=== PATIENT | male | born 1955 | race Caucasian/White ===

== ENCOUNTER 2018-10-18 11:05 | Inpatient (IN) ==
--- NOTE | 2018-10-18 11:19 | Emergency Department Note ---
Disposition Clinical Impression: Collapse of right lung, Hypoxia Disposition: Admitted As Inpatient Referrals: Jose Alejandro Santos Jr, MD [Primary Care Provider] - Forms: ED Satisfaction Letter Time of Disposition: 14:27 General Adult HPI - General Chief complaint: ED Extremity Injury, Lower Stated complaint: left foot pain Time Seen by Provider: 10/18/18 11:13 Source: patient Mode of arrival: EMS Limitations: no limitations Nursing Notes Reviewed: Yes Vital Signs Reviewed: Yes - History of Present Illness HPI Narrative: 63-year-old male with history of anxiety depression, arrives to the emergency department with complaint of bilateral foot numbness. Patient states it feels like he is having some driven into the bottom of his foot. He denies any injury to it. Patient states this started this morning when he woke up and he noticed it. Patient denies any other neurologic deficit or any other complaint at this time. He states it is not exacerbated with walking or sitting still. He has no associated symptoms other than the mild numbness and tingling. Patient is still able to ambulate without difficulty. He denies any weakness of the foot, lower extremity, back injury, saddle anesthesias, urinary retention or bowel incontinence, head injury, fevers, head injury, anticoagulation, chest pain, difficulty breathing, abdominal pain. He also states that a few days ago he had a chest x-ray that was performed by his PCP and they noted "right lower lung collapse". This is confirmed by chest x-ray on chart eval. Patient is due for a CT scan of the chest within the next few days. He is noted to be 90% on room air. No other acute complaints noted at this time. - Related Data Home Medications Medication Instructions Recorded Confirmed Amitriptyline HCl 100 mg PO HS 10/18/18 10/18/18 Aripiprazole [Abilify] 30 mg PO DAILY 10/18/18 10/18/18 LORazepam [Ativan] 1 mg PO QID 10/18/18 10/18/18 PARoxetine HCl [Paroxetine HCl] 60 mg PO HS 10/18/18 10/18/18 Allergies Allergy/AdvReac Type Severity Reaction Status Date / Time No Known Allergies Allergy Verified 10/18/18 13:12 All systems ED: reviewed and negative except as stated. Constitutional: Denies: fever, chills, weakness ENT ED: Denies: dysphagia Cardiovascular: Denies: chest pain Respiratory: Denies: dyspnea Gastrointestinal: Denies: abdominal pain Genitourinary: Denies: urgency, dysuria Musculoskeletal: Reports: myalgia. Denies: back pain, neck pain Integumentary: Denies: rash Neurological: Reports: numbness, paresthesias. Denies: headache, weakness, confusion, abnormal gait Past Medical History - Past Medical History Attestation: Yes The following information was validated with the patient. Source: patient, old records reviewed Medical history: Reports: no medical history, other Surgical history: Reports: cholecystectomy Psychiatric history: Reports: anxiety, depression - Social History Smoking Status: Former smoker Smokeless Tobacco Status: No Alcohol use: Reports: none Drug use: Reports: none Physical Exam - General Limitations: no limitations General appearance: alert, in no apparent distress - Head Head exam: atraumatic, normocephalic, normal inspection - Eye Eye exam: Present: normal appearance, PERRL, EOMI - ENT ENT exam: normal exam, normal oropharynx, mucous membranes moist - Neck Neck exam: Present: normal inspection, full ROM, trachea midline - Chest Chest inspection: Present: normal inspection, symmetric chest wall rise - Respiratory Respiratory exam: Present: normal lung sounds bilaterally - Cardiovascular Cardiovascular exam: Present: regular rate, normal rhythm, normal heart sounds - Abdominal Exam Abdominal exam: Present: soft, Non-Tender. Absent: tenderness, distention, guarding, rebound, rigidity - Extremities Exam Extremities exam: Present: normal inspection, full ROM, normal capillary refill, other (DP and PT pulses 2+ bilateral lower extremities, capillary refill less than 2 seconds, sensation intact bilateral lower extremities along the foot but patient does describe some pins and needles sensation along lateral, medial and central aspect of the dorsal aspect of his toes. He denies any aspect of the plantar aspect. The patient has full range of motion and Muscle strength.). Absent: tenderness - Neurological Exam Neurological exam: Present: alert, oriented X3 - Skin Skin exam: Present: warm, dry, intact, normal color Course Vital Signs Temperature 98.1 F 10/18/18 11:11 Pulse Rate 100 10/18/18 11:11 Respiratory Rate 20 10/18/18 11:11 Blood Pressure 136/83 10/18/18 11:11 O2 Sat by Pulse Oximetry 92 10/18/18 11:11 Temperature 98.1 F 10/18/18 11:11 Pulse Rate 75 10/18/18 14:20 Respiratory Rate 20 10/18/18 14:20 Blood Pressure 122/73 10/18/18 14:20 O2 Sat by Pulse Oximetry 92 10/18/18 14:20 Oxygen Delivery Oxygen Delivery Nasal Cannula Medical Decision Making - MDM Narrative Medical decision making narrative: Patient's workup in the emergency department demonstrates collapse of the right middle lobe. This is likely secondary to secretions. The patient is noted to be hypoxic down into the 80s on room air. Given the collapse of the long combined with his hypoxia, we will admit the patient to the hospital for further workup and care. Patient's etiology of his foot pain is likely associated with a neuropathy type pattern. It does not fit any peripheral neuropathy so we performed a CT scan of the patient's brain. This to Mr. no acute process. Patient has no back pain and no other neurologic deficits noted. I am not concerned about CVA. This is producing more of a peripheral neuropathy associated with the pain. This does not appear to be a pinched nerve or radiculopathy. The patient will be admitted to the hospital at this time given the hypoxia combined with his "lung collapse". No further questions or concerns noted. Patient agreed with plan. I also spoke with on-call erp analyst who will perform a bronchoscopy the patient first thing in the morning. No further questions or concerns noted. Acceoted by Dr. Lorenz. - Lab Data Lab results reviewed: Yes I reviewed the patient's lab results. Result diagrams: 10/18/18 11:59 10/18/18 11:59 Lab Results 10/18/18 10/18/18 Range/Units 11:59 11:59 WBC 5.9 (4.3-11.1) K/mcL RBC 4.94 (4.19-5.50) M/mcL Hgb 15.9 (12.9-16.9) g/dL Hct 47.5 (37.5-50.1) % MCV 96.2 (83.0-100.0) fL MCH 32.2 (28.0-33.3) pg MCHC 33.5 (31.6-35.5) g/dL RDW 13.7 (11.5-14.5) % Plt Count 167 (140-400) K/mcL MPV 10.3 (9.4-12.4) fL Immature Gran % 0.5 (0-4) % Seg Neutrophils % 74.1 % Lymphocytes % 17.5 % Monocytes % 7.3 % Eosinophils % 0.3 % Basophils % 0.3 % Neutrophils # 4.3 (1.6-8.9) K/mcL Lymphocytes # 1.0 (0.6-4.6) K/mcL Monocytes # 0.4 (0.0-1.3) K/mcL Eosinophils # 0.0 (0.0-0.6) K/mcL Basophils # 0.0 (0.0-0.2) K/mcL Sodium 142 (136-145) mEq/L Potassium 4.1 (3.5-5.1) mEq/L Chloride 105 (98-107) mEq/L Carbon Dioxide 27 (23-29) mEq/L BUN 13 (8-23) mg/dL Creatinine 0.97 (0.70-1.30) mg/dL Est GFR ( Amer) > 60 (> 60) Est GFR (Non-Af Amer) > 60 (> 60) BUN/Creatinine Ratio 13 (6-26) Glucose 116 H (70-105) mg/dL Calculated Osmolality 295 (280-300) Calcium 9.1 (8.6-10.3) mg/dL Troponin I < 0.03 (< 0.04) ng/mL - Radiology Data Radiology results reviewed: Yes I reviewed the patient's radiology results. Head CT 10/18/18 11:14 IMPRESSION: No acute intracranial abnormality. D/ / Olu Jeronimo MD / Olu Jeronimo MD Interpreting Provider: Olu Jeronimo MD Chest CT 10/18/18 11:16 IMPRESSION: 1. Near complete collapse of the right lower lobe and partial collapse of the right middle lobe secondary to significant airway secretions. No solid endobronchial mass is appreciated. Consider bronchoscopy for further evaluation. 2. Small sliding-type hiatal hernia. D/ / 10/18/2018 11:52:20 Essence Castillo MD / [facility] Interpreting Provider: Essence Castillo MD - EKG Data EKG #1 EKG attestation: Yes I reviewed and interpreted this EKG. EKG results narrative: Heart rate 94 beats for minute. Normal sinus rhythm. No ST elevation or ST depression noted. EKG with some nonspecific changes noted from EKG on 01/13/2016.
[2018-10-18 12:30] LABS: Basophils % 0.3 %; Eosinophils % 0.3 %; Hematocrit 47.5 % (37.5-50.1); Hemoglobin 15.9 g/dL (12.9-16.9); Immature Granulocytes % 0.5 % (0-4); Lymphocytes % 17.5 %; Mean Corpuscular HGB Conc 33.5 g/dL (31.6-35.5); Mean Corpuscular Hemoglobin 32.2 pg (28.0-33.3); Mean Corpuscular Volume 96.2 fL (83.0-100.0); Mean Platelet Volume 10.3 fL (9.4-12.4); Monocytes # 0.4 K/mcL (0.0-1.3); Monocytes % 7.3 %; Neutrophils # 4.3 K/mcL (1.6-8.9); Platelet Count 167 K/mcL (140-400); Red Blood Count 4.94 M/mcL (4.19-5.50); Red Cell Distribution Width 13.7 % (11.5-14.5); Segmented Neutrophils % 74.1 %
[2018-10-18 12:36] LABS: BUN/Creatinine Ratio 13 (6-26); Blood Urea Nitrogen 13 mg/dL (8-23); Calcium 9.1 mg/dL (8.6-10.3); Carbon Dioxide 27 mEq/L (23-29); Chloride 105 mEq/L (98-107); Glucose 116 mg/dL (70-105); Osmolality,Calculated 295 (280-300); Potassium 4.1 mEq/L (3.5-5.1); Sodium 142 mEq/L (136-145); eGFR For Non-African Americans > 60 (> 60)
[2018-10-18 12:44] LABS: Troponin I < 0.03 ng/mL (< 0.04)
--- NOTE | 2018-10-18 12:49 | Emergency Department Note ---
Disposition Clinical Impression: Collapse of right lung, Hypoxia Disposition: Admitted As Inpatient Forms: ED Satisfaction Letter Time of Disposition: 12:49 General Adult HPI - General Chief complaint: ED Extremity Injury, Lower Stated complaint: left foot pain Time Seen by Provider: 10/18/18 11:13 Source: patient Mode of arrival: EMS Limitations: no limitations - History of Present Illness Pain Scale: 0 - Related Data Home Medications Medication Instructions Recorded Confirmed Paroxetine HCl [Paxil] 60 mg PO HS 01/01/15 10/18/18 Abilify 10/18/18 Amitriptyline 10/18/18 LORazepam [Ativan] 4 mg PO QID 10/18/18 10/18/18 Allergies Allergy/AdvReac Type Severity Reaction Status Date / Time No Known Allergies Allergy Verified 12/26/14 14:19 Constitutional: Denies: fever, chills, weakness ENT ED: Denies: dysphagia Cardiovascular: Denies: chest pain Respiratory: Denies: dyspnea Gastrointestinal: Denies: abdominal pain Genitourinary: Denies: urgency, dysuria Musculoskeletal: Reports: myalgia. Denies: back pain, neck pain Integumentary: Denies: rash Neurological: Reports: numbness, paresthesias. Denies: headache, weakness, confusion, abnormal gait Past Medical History - Past Medical History Medical history: Reports: no medical history, other Surgical history: Reports: cholecystectomy Psychiatric history: Reports: anxiety, depression - Social History Smoking Status: Former smoker Smokeless Tobacco Status: No Alcohol use: Reports: none Drug use: Reports: none Physical Exam - General Limitations: no limitations General appearance: alert, in no apparent distress Course Vital Signs Temperature 98.1 F 10/18/18 11:11 Pulse Rate 100 10/18/18 11:11 Respiratory Rate 10/18/18 11:11 Blood Pressure 136/83 10/18/18 11:11 O2 Sat by Pulse Oximetry 92 10/18/18 11:11 Temperature 98.1 F 10/18/18 11:11 Pulse Rate 93 10/18/18 11:57 Respiratory Rate 10/18/18 11:57 Blood Pressure 150/88 10/18/18 11:57 O2 Sat by Pulse Oximetry 94 10/18/18 11:57 Oxygen Delivery Oxygen Delivery Nasal Cannula Medical Decision Making - Lab Data Result diagrams: 10/18/18 11:59 10/18/18 11:59 Lab Results 10/18/18 10/18/18 Range/Units 11:59 11:59 WBC 5.9 (4.3-11.1) K/mcL RBC 4.94 (4.19-5.50) M/mcL Hgb 15.9 (12.9-16.9) g/dL Hct 47.5 (37.5-50.1) % MCV 96.2 (83.0-100.0) fL MCH 32.2 (28.0-33.3) pg MCHC 33.5 (31.6-35.5) g/dL RDW 13.7 (11.5-14.5) % Plt Count 167 (140-400) K/mcL MPV 10.3 (9.4-12.4) fL Immature Gran % 0.5 (0-4) % Seg Neutrophils % 74.1 % Lymphocytes % 17.5 % Monocytes % 7.3 % Eosinophils % 0.3 % Basophils % 0.3 % Neutrophils # 4.3 (1.6-8.9) K/mcL Lymphocytes # 1.0 (0.6-4.6) K/mcL Monocytes # 0.4 (0.0-1.3) K/mcL Eosinophils # 0.0 (0.0-0.6) K/mcL Basophils # 0.0 (0.0-0.2) K/mcL Sodium 142 (136-145) mEq/L Potassium 4.1 (3.5-5.1) mEq/L Chloride 105 (98-107) mEq/L Carbon Dioxide 27 (23-29) mEq/L BUN 13 (8-23) mg/dL Creatinine 0.97 (0.70-1.30) mg/dL Est GFR ( Amer) > 60 (> 60) Est GFR (Non-Af Amer) > 60 (> 60) BUN/Creatinine Ratio 13 (6-26) Glucose 116 H (70-105) mg/dL Calculated Osmolality 295 (280-300) Calcium 9.1 (8.6-10.3) mg/dL Troponin I < 0.03 (< 0.04) ng/mL Attestation Statement - Attestation Attestation: I examined this patient and my medical decision-making was reviewed with the Resident Physician. I agree with the documented findings, disposition and treatment plan as described except to the extent set forth below. 63-year-old male presents the emergency room for some weird foot sensation on both feet that started this morning. [place] like he was getting a rail drove and into his foot. He denies trauma. He also incidentally admits he had a chest x- ray done recently for a cough that showed some obstruction process in his lung. We did a CT of his head today and that was negative. CT of the chest shows collapse of the right lower and partial right middle lobe secondary to increased secretions. Patient needs to come in because he has been hypoxic here in the high 80s. Does not wear home oxygen. Patient needs a bronchoscopy and pulmonary consult. EKG documented by resident and I agree with the interpretation and documentation of this EKG
[2018-10-18] MEDS ORDERED: Naloxone 0.4 MG/ML INJ IVP PRN (14:51)
--- NOTE | 2018-10-18 14:55 | Internal Med History&Physical ---
Date of Encounter: 10/18/18 Time of Encounter: 14:51 Internal Medicine - H&P: HPI Chief complaint: foot numbness Admitted From: Home Plans for Post Hospital Care: Home History of present illness: Mr. Leone is a 63 year old male past medical history of diverticulitis, anxiety, depression dental caries morbid obesity possible sleep apnea came with complaint of foot numbness when he woke up this morning. Patient recently had seen PCP on Monday when he started having difficulty breathing after carrying a stereo speaker on Monday. He had one day of chills and sweating which got resolved except his shortness of breath which continued to some extent. He had shortness of breath about his usual shortness of breath associated with being heavy. Denies any fevers or chest pain. Denies any runny nose or sore throat sick contacts or travel. Does have poor dentition and has appointment coming up soon. Does not feel he is missing any these. Denies any chest trauma. Has been having more cough than usual since Monday which is nonproductive in nature. He is a past smoker with 30 pack years quit since 2008. Denies any allergies. Vision was evaluated in ER with head CT which was unremarkable and a CT chest which showed near complete collapse of right lower lobe and partial collapse of right middle lobe possibly related to airway secretion without any obvious endobronchial mass, unremarkable labs. Admission was requested for further management of collapsed lung with hypoxia. Past Med Surg Social Fam HX - Past Medical History Medical history: no medical history, other Additional medical history: Diverticulitis. Psychiatric history: anxiety, depression - Past Surgical History Surgical History: cholecystectomy Additional surgical history: Fatty tumor removed on the back of neck close to spine. - Social History Smoking Status: Former smoker Smokeless Tobacco Status: No Alcohol use: none (for heavy drinker. quit in 2007) Drug use: none - Family History Father Living Status: Hx Family Cancer: Yes (Colon) Hx Family Neurologic Disorders: Yes (Alzheimers) Mother Living Status: Hx Family Cardiac Disorders: Yes (A-fib, stroke) Hx Family GI Disorders: Yes (Diverticulitis) Hx Family Endocrine Disorder: Yes (DM) Sister Hx Family Endocrine Disorder: Yes (DM) Internal Medicine - H&P: Meds Amitriptyline HCl 100 mg PO HS 10/18/18 [History] Aripiprazole [Abilify] 30 mg PO DAILY 10/18/18 [History] LORazepam [Ativan] 1 mg PO QID 10/18/18 [History] PARoxetine HCl [Paroxetine HCl] 60 mg PO HS 10/18/18 [History] Allergy/AdvReac Type Severity Reaction Status Date / Time No Known Allergies Allergy Verified 10/18/18 13:12 All Systems PM: A 10-system review of systems was performed and is negative for pertinent findings except as documented above in the HPI. - Constitutional Vitals: Temp Pulse Resp BP Pulse Ox 98.1 F 75 20 122/73 92 10/18/18 11:11 10/18/18 14:20 10/18/18 14:20 10/18/18 14:20 10/18/18 14:20 Exam: Constitutional: Vitals as noted. Conversant. No Apparent Distress. Morbidly obese. Eyes : Sclera white, conjunctiva clear, no lid lag, PEARLA. ENT : Grossly normal hearing. poor dentition. Moist mucus membranes. No JVD, no cervical lymphadenopathy. no thyromegaly or mass. Respiratory : No accessory muscle use. Occasional rhonchi on Rt Lower lung perez Cardiovascular : RRR, +S1, +S2. no murmur, gallop, rubs. No chest wall tenderness GI/Abdominal : Soft, Non-tender, Non-distended, normal bowel sounds, no peritoneal signs. no orgenomegaly or mass appreciated. no hernia. Musculoskeletal: no deformity noted. no edema or cyanosis. warm extremities, pulses palpable and symmetrical in UE/LE. no calf tenderness. Neurological: AO X3, CN II-XII grossly intact, grossly normal motor and sensory exam. parasthesia on soles Skin: No skin rash, lesions or ulcers noted. Pych: Good insight and judgement. Intact memory. AOx3. Internal Med - H&P Results - Labs CBC & Chem 7: 10/18/18 11:59 10/18/18 11:59 Labs: Short CBC 10/18/18 Range/Units 11:59 WBC 5.9 (4.3-11.1) K/mcL Hgb 15.9 (12.9-16.9) g/dL Hct 47.5 (37.5-50.1) % Plt Count 167 (140-400) K/mcL Neutrophils # 4.3 (1.6-8.9) K/mcL BMP 10/18/18 11:59 Sodium 142 Potassium 4.1 Chloride 105 Carbon Dioxide 27 BUN 13 Creatinine 0.97 Glucose 116 H Calcium 9.1 Cardiac Enzymes 10/18/18 Range/Units 11:59 Troponin I < 0.03 (< 0.04) ng/mL - EKG Data -: EKG Interpreted by Myself EKG shows normal: sinus rhythm (non specific st-t wave changes) - Impressions ITS Impressions Head CT 10/18/18 11:14 IMPRESSION: No acute intracranial abnormality. D/ / Olu Jeronimo MD / Olu Jeronimo MD Interpreting Provider: Olu Jeronimo MD Chest CT 10/18/18 11:16 IMPRESSION: 1. Near complete collapse of the right lower lobe and partial collapse of the right middle lobe secondary to significant airway secretions. No solid endobronchial mass is appreciated. Consider bronchoscopy for further evaluation. 2. Small sliding-type hiatal hernia. D/ / 10/18/2018 11:52:20 Essence Castillo MD / [facility] Interpreting Provider: Essence Castillo MD - Assessment and Plan (1) Collapse of right lung Current Visit: Yes Status: Acute Assessment and plan: Near complete collapse of RLL and partial RML on CT No clear endobronchial lesions. Has poor dentition Hemodynamically stable. Saturating well on 4 Lit. Plan for bronchoscopy tomorrow morning. NPO after midnight. (2) Acute respiratory failure with hypoxia Current Visit: Yes Status: Acute (3) Morbid obesity with BMI of 45.0-49.9, adult Current Visit: Yes Status: Acute Assessment and plan: Discussed lifestyle changes and encouraged weight loss (4) Hypoxia Current Visit: Yes Status: Acute Assessment and plan: from lung collapse management as above (5) Anxiety and depression Current Visit: No Status: Chronic Assessment and plan: Continue home medications. (6) Numbness and tingling of both feet Current Visit: Yes Status: Acute Assessment and plan: Possibly related to hyperventilation. No other focal signs of weakness. Normal A1c recently,. Head Ct unremarkable. - Time Spent With Patient Total time spent is greater than 50% in coordination of care (as documented) at patient's floor/unit and/or counseling patient:
--- NOTE | 2018-10-18 15:00 | Pulmonology Consult Note ---
Date of Encounter: 10/18/18 Time of Encounter: 15:00 Assessment and Plan (1) Acute respiratory failure with hypoxia Current Visit: Yes Status: Acute Patient is limited acute hypoxic respiratory failure patient has small airway disease with some emphysematous changes with possible right middle lobe right lower lobe pneumonia with collapse contributing to his current picture agree with the continuing schedule bronchodilators, steroids and antibiotics. It is reasonable to examine the airways to make sure there is no endobronchial lesions most likely mucus plugging is willing to undergo bronchoscopy IA explained about the risk and benefit patient willing to proceed will keep him nothing by mouth after midnight. I will put him on the list for tomorrow (2) COPD (chronic obstructive pulmonary disease) Current Visit: Yes Status: Chronic To continue scheduled bronchodilators, steroids Qualifiers: COPD type: COPD with acute exacerbation Qualified Code(s): J44.1 - Chronic obstructive pulmonary disease with (acute) exacerbation (3) ANN (obstructive sleep apnea) Current Visit: No Status: Chronic Patient will need outpatient sleep evaluation. (4) Collapse of right lung Current Visit: Yes Status: Acute Patient has right middle and right lower lobe collapse we will recommend that bronchoscopic airway examination for possible mucus plugging or endobronchial lesion. Patient is willing to undergo bronchoscopy to keep him nothing by mouth after midnight. History of Present Illness Consult date: 10/18/18 Requesting physician: Inocencio Coleman Reason for consult: dyspnea, abnormal CXR/CT Chief complaint: Shortness of breath History of present illness: 63-year-old male with past medical history significant for anxiety, depression morbid obesity, poor dentition patient was diagnosed of COPD no PFTs , patient was diagnosed with ANN in the past not using CPAP. Patient had progressive shortness of breath increased cough and sputum production with some fever and chills patient has some coughing episode while eating the background of poor dentition. Patient denies any hemoptysis, Patient denies any chest pain chest tightness denies any palpitation denies any recent AK denies any anginal symptoms denies any active abdominal pain or GERD-like symptoms pulmonary was consulted for evaluation of the right middle lobe control lung collapse. Past Med Surg Social Fam HX - Past Medical History Medical history: no medical history, other Additional medical history: Diverticulitis. Psychiatric history: anxiety, depression - Past Surgical History Surgical History: cholecystectomy Additional surgical history: Fatty tumor removed on the back of neck close to spine. - Social History Smoking Status: Former smoker Smokeless Tobacco Status: No Alcohol use: none Drug use: none - Family History Father Living Status: Hx Family Cancer: Yes (Colon) Hx Family Neurologic Disorders: Yes (Alzheimers) Mother Living Status: Hx Family Cardiac Disorders: Yes (A-fib, stroke) Hx Family GI Disorders: Yes (Diverticulitis) Hx Family Endocrine Disorder: Yes (DM) Sister Hx Family Endocrine Disorder: Yes (DM) Medications and Allergies Amitriptyline HCl 100 mg PO HS 10/18/18 [History] Aripiprazole [Abilify] 30 mg PO DAILY 10/18/18 [History] LORazepam [Ativan] 1 mg PO QID 10/18/18 [History] PARoxetine HCl [Paroxetine HCl] 60 mg PO HS 10/18/18 [History] Allergy/AdvReac Type Severity Reaction Status Date / Time No Known Allergies Allergy Verified 10/18/18 13:12 All Systems: The remainder of the systems were reviewed and are negative Physical Examination Vital Signs: Vital Signs, Last 4 Hours Temp Pulse Resp BP Pulse Ox 10/18/18 14:20 75 20 122/73 92 10/18/18 13:20 78 20 116/69 92 10/18/18 11:57 93 20 150/88 94 10/18/18 11:11 98.1 F 100 20 136/83 92 General appearance: no acute distress Eyes: nonicteric ENT: oropharynx moist Auscultation: right: wheezes (Scattered wheezes) Cardiovascular: regular rate and rhythm Gastrointestinal: normoactive bowel sounds Extremities: no edema normal mental status, non-focal exam mood appropriate Results - Laboratory Findings CBC and BMP: 10/18/18 11:59 10/18/18 11:59 Abnormal lab findings: Abnormal lab results Glucose 116 mg/dL (70-105) H 10/18/18 11:59 - Clinical Findings Intake & Output: Intake & Output 10/17/18 10/18/18 10/18/18 23:59 07:59 15:59 Weight 130.635 kg Consult Discharge Plan - Plan
[2018-10-18] MEDS ORDERED: Piperacillin/Tazobactam 3.375 GM in 0.9 % Sodium Chloride Mini Bag 100 ML IVPB ONE (16:43)
[2018-10-18] MEDS ORDERED: predniSONE 20 MG TABLET PO ONE (16:43)
[2018-10-18] MEDS: *HR* LORazepam 1 MG TABLET PO SCH ×2 (18:30→21:24)
[2018-10-18] MEDS: Ipratropium/Albuterol Neb 3 ML IH SCH (20:24)
[2018-10-19] MEDS: Ipratropium/Albuterol Neb 3 ML IH SCH ×7 (03:56→23:29)
[2018-10-19] MEDS: Piperacillin/Tazobactam 3.375 GM in 0.9 % Sodium Chloride Mini Bag 100 ML IVPB SCH ×3 (04:47→19:55)
--- NOTE | 2018-10-19 06:42 | Pulmonology Progress Note ---
Date of Encounter: 10/19/18 Time of Encounter: 06:42 Assessment and Plan (1) COPD (chronic obstructive pulmonary disease) Current Visit: Yes Status: Chronic Continue bronchodilators Continue antibiotics Continue airway clearance Tobacco cessation in remission Qualifiers: COPD type: COPD with acute exacerbation Qualified Code(s): J44.1 - Chronic obstructive pulmonary disease with (acute) exacerbation (2) Collapse of right lung Current Visit: Yes Status: Acute A bronchoscopy is recommended. The procedure , risks, benefits, complications, and expected outcomes have been reviewed. Benefits of diagnosis, as well as risks to include bleeding, infection, pneumothorax which may require surgical intervention, and in a small population. The patient is aware that sometimes test is nondiagnostic. Discussed with patient and agrees to proceed. (3) ANN (obstructive sleep apnea) Current Visit: No Status: Chronic He will need outpatient follow-up Objective PUL Vital signs: Last Vital Signs Temp 98.2 F 10/19/18 05:44 Pulse 100 10/19/18 05:44 Resp 16 10/19/18 05:44 BP 115/63 10/19/18 05:44 Pulse Ox 89 10/19/18 05:44 Results - Laboratory Findings CBC and BMP: 10/18/18 11:59 10/18/18 11:59 Abnormal lab findings: Abnormal lab results Glucose 116 mg/dL (70-105) H 10/18/18 11:59 - Clinical Findings Intake & Output: Intake & Output 10/18/18 10/18/18 10/19/18 15:59 23:59 07:59 Intake Total 0 / 0 0 / 0 Output Total 200 / 200 Balance -200 / -200 0 / 0 Weight 130.635 kg 131 kg 131 kg Consult Discharge Plan - Plan Referrals: Jose Alejandro Santos Jr, MD [Primary Care Provider] -
[2018-10-19] MEDS ORDERED: *HR* FentaNYL (PF) 100 MCG/2 ML VIAL IVP ONE (07:47)
[2018-10-19] MEDS ORDERED: *HR* Midazolam HCl 5 MG/5 ML VIAL IVP ONE (07:47)
[2018-10-19] MEDS ORDERED: Tetracaine/Benzocaine/Butamben 1 SPRAY AEROSOL MM ONE (07:47)
--- NOTE | 2018-10-19 07:47 | Pre-Sedation Evaluation ---
Pre-sedation evaluation - Pre-sedation checklist Date of procedure: 10/19/18 Procedure: Bronchoscopy Recent Vitals: Last Vital Signs Temp 98 F 10/19/18 06:53 Pulse 83 10/19/18 06:53 Resp 17 10/19/18 07:20 BP 137/84 10/19/18 06:53 Pulse Ox 94 10/19/18 07:20 H&P (including ROS) documented in medical record: Yes Previous reaction to sedatives/anesthetics: No Dietary Status: NPO after Midnight Airway Assessment: Patient can open mouth completely, TMJ function normal Dentition: poor dentition Possible difficult airway: Yes If Yes;: History of Obstructive Sleep Apnea ASA Classification *see protocol: CLASS II-Mild systemic disease Plan of Care: Pt appropriate candidate for procedure/moderate/conscious sedation, Risks/benefits of procedure/sedation discussed w/ patient/family
[2018-10-19] MEDS ORDERED: Lidocaine -MPF 4% 5 ML AMPUL ONE (09:22)
[2018-10-19] MEDS ORDERED: *HR* Propofol 200 MG/20 ML VIAL IVP ONE (09:22)
[2018-10-19] MEDS ORDERED: *HR* FentaNYL (PF) 100 MCG/2 ML VIAL ONE (09:29)
[2018-10-19] MEDS ORDERED: Ondansetron 4 MG/2 ML VIAL ONE (09:37)
[2018-10-19] MEDS ORDERED: Dexamethasone 4 MG/ML VIAL ONE (09:37)
--- NOTE | 2018-10-19 10:21 | Anesthesia Evaluation PreOp ---
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 History: Denies Any Significant HX Other Medical History: Other (bipolar depression, schizophrenia, obesity BMI=46.6) Anesthesia History: No Prior Anesthetic Complications, Past Anesthesia Alcohol Use: none Drug use: none Medications and Allergies Amitriptyline HCl 100 mg PO HS 10/18/18 [History] Aripiprazole [Abilify] 30 mg PO DAILY 10/18/18 [History] LORazepam [Ativan] 1 mg PO QID 10/18/18 [History] PARoxetine HCl [Paroxetine HCl] 60 mg PO HS 10/18/18 [History] Allergy/AdvReac Type Severity Reaction Status Date / Time No Known Allergies Allergy Verified 10/18/18 13:12 - Meds/Allergy Pre-op Review Medications Reviewed: Yes Allergies Reviewed: Yes Beta Blockers on Current Med List: No Anesthesia Results - Labs 10/18/18 11:59 10/18/18 11:59 - Imaging EKG: report reviewed (01/12/[address] \T\ T-WAVE ABNORMALITY) Chest x-ray: report reviewed (10/15/2018 IMPRESSION: Right lower lobe collapse. Recommend contrast-enhanced CT scan of the chest to evaluate for possible c entral obstructing mass.) Anesthesia Exam Vital Signs/O2 Sat/Glucose, Most Recent Temp Pulse Resp BP Pulse Ox 98 F 83 17 137/84 94 10/19/18 06:53 10/19/18 06:53 10/19/18 07:20 10/19/18 06:53 10/19/18 07:20 Blood Glucose* 135 - HEENT Pupil (Motor): EOMI Mallampati: III Teeth: Missing, Poor dentition Oral Opening: Greater than 3 - ENVIRONMENTAL CONTROL ADMINISTRATOR LOC: Oriented ENVIRONMENTAL CONTROL ADMINISTRATOR Motor: Normal RUE, Normal LUE, Normal RLE, Normal LLE, Normal Face ENVIRONMENTAL CONTROL ADMINISTRATOR Sensory: Normal: RUE, LUE, Face, Deficit: RLE, LLE - Cardiac Rhythm: Regular Murmur: None - Pulmonary Breath Sounds: bilateral Rhonchi (decreased BS right) Respiratory Effort: Symmetrical Anesthesia Assess/Plan ASA Score: 3 Level of consciousness: Cooperative, Oriented, Tranquil Anesthetic Plan: General Monitoring Plan: Standard Monitors Recovery Plan: PACU
--- NOTE | 2018-10-19 10:31 | Internal Med Progress Note ---
Hospitalist Progress Note - Encounter Date of Encounter: 10/19/18 Time of Encounter: 10:25 - Subjective Interval History: No acute event overnight. Shortness of breath slight better but is still requiring oxygen by nasal cannula Patient seen and examined. Talk to leather seasoner. Reviwed vitals. Patient is nothing by mouth Patient denies fever chills nausea vomiting headache dizziness chest pain abdominal pain diarrhea. - Exam Vitals: Temp Pulse Resp BP Pulse Ox 98 F 84 18 184/81 91 10/19/18 06:53 10/19/18 10:23 10/19/18 10:23 10/19/18 10:23 10/19/18 10:23 Exam: Constitutional: Vitals as noted. No acute distress. Oxygen by nasal cannula 4 L. Eyes : EOMI PEARLA. ENT : Grossly normal hearing. poor dentition. Moist mucus membranes. No JVD Respiratory : No accessory muscle use. Decreased breath sound bilaterally Occasional rhonchi on Rt Lower lung perez Cardiovascular : RRR, +S1, +S2. no murmur GI/Abdominal : Soft, Non-tender, Non-distended, normal bowel sounds Musculoskeletal: no deformity noted. no edema or cyanosis. warm extremities, pulses palpable and symmetrical in UE/LE. no calf tenderness. Neurological: AO X3, CN II-XII grossly intact, grossly normal motor and sensory exam. parasthesia on soles Skin: No skin rash, lesions or ulcers noted. Pych: Good insight and judgement. Intact memory. AOx3. Appears slight anxious - Assessment and Plan (1) Collapse of right lung Current Visit: Yes Status: Acute Assessment and Plan: Near complete collapse of RLL and partial RML on CT- No clear endobronchial lesions. Has poor dentition. Continue bronchodilator, IV antibiotic bronchial hygiene. Continue oxygen supplementation at this time 4 L oxygen by nasal cannula. Patient is nothing by mouth in bronchoscopy schedule today. (2) Anxiety and depression Current Visit: No Status: Chronic Assessment and Plan: Continue home medications. (3) Hypoxia Current Visit: Yes Status: Acute Assessment and Plan: from lung collapse management as above (4) Morbid obesity with BMI of 45.0-49.9, adult Current Visit: Yes Status: Acute Assessment and Plan: Discussed lifestyle changes and encouraged weight loss (5) Acute respiratory failure with hypoxia Current Visit: Yes Status: Acute Assessment and Plan: As above. (6) Numbness and tingling of both feet Current Visit: Yes Status: Acute Assessment and Plan: Possibly related to hyperventilation. No other focal signs of weakness. Normal A1c recently,. Head Ct unremarkable. (7) DVT prophylaxis Current Visit: Yes Status: Acute Assessment and Plan: Heparin subcutaneous A.m. lab ordered - Time Spent with Patient Total time spent is greater than 50% in coordination of care (as documented) at patient's floor/unit and/or counseling patient: 25 - 35 minutes Plan of Care Discussed with: patient Internal Medicine: Result - Labs CBC & Chem 7: 10/18/18 11:59 10/18/18 11:59 Labs: Short CBC 10/18/18 Range/Units 11:59 WBC 5.9 (4.3-11.1) K/mcL Hgb 15.9 (12.9-16.9) g/dL Hct 47.5 (37.5-50.1) % Plt Count 167 (140-400) K/mcL Neutrophils # 4.3 (1.6-8.9) K/mcL BMP 10/18/18 11:59 Sodium 142 Potassium 4.1 Chloride 105 Carbon Dioxide 27 BUN 13 Creatinine 0.97 Glucose 116 H Calcium 9.1 Cardiac Enzymes 10/18/18 Range/Units 11:59 Troponin I < 0.03 (< 0.04) ng/mL - Impressions Impressions Head CT 10/18/18 11:14 IMPRESSION: No acute intracranial abnormality. D/ / Olu Jeronimo MD / lOu Jeronimo MD Interpreting Provider: Olu Jeronimo MD Chest CT 10/18/18 11:16 IMPRESSION: 1. Near complete collapse of the right lower lobe and partial collapse of the right middle lobe secondary to significant airway secretions. No solid endobronchial mass is appreciated. Consider bronchoscopy for further evaluation. 2. Small sliding-type hiatal hernia. D/ / 10/18/2018 11:52:20 Essence Castillo MD / earnold Interpreting Provider: Essence Castillo MD Consult Discharge Plan - Plan Referrals: Jose Alejandro Santos Jr, MD [Primary Care Provider] -
[2018-10-19] MEDS: *HR* LORazepam 1 MG TABLET PO SCH ×4 (11:46→22:02)
[2018-10-19] MEDS: ARIPiprazole 10 MG TABLET PO SCH (11:46)
[2018-10-19] MEDS: predniSONE 20 MG TABLET PO SCH (11:46)
[2018-10-19 15:03] LABS: Appearance of Body Fluid Cloudy (Clear); Volume of Body Fluid 15 mL
[2018-10-19] MEDS: Ringers Solution, Lactated 1,000 ML IVC SCH (17:06)
[2018-10-19] MEDS: *HR* Heparin 5,000 UNIT/ML VIAL SQ SCH (18:00)
[2018-10-19] MEDS ORDERED: Menthol 9.1 MG LOZENGE PO PRN (21:16)
[2018-10-20] MEDS: Ipratropium/Albuterol Neb 3 ML IH SCH ×6 (04:10→23:07)
[2018-10-20 04:46] LABS: Basophils % 0.1 %; Hemoglobin 14.5 g/dL (12.9-16.9); Immature Granulocytes % 0.6 % (0-4); Lymphocytes # 1.1 K/mcL (0.6-4.6); Lymphocytes % 6.9 %; Mean Corpuscular Volume 97.1 fL (83.0-100.0); Mean Platelet Volume 10.6 fL (9.4-12.4); Monocytes % 4.9 %; Neutrophils # 13.3 K/mcL (1.6-8.9); Platelet Count 167 K/mcL (140-400); Red Blood Count 4.53 M/mcL (4.19-5.50); Red Cell Distribution Width 13.6 % (11.5-14.5); Segmented Neutrophils % 87.5 %
[2018-10-20 04:50] LABS: Monocytes # 0.7 K/mcL (0.0-1.3)
[2018-10-20 05:05] LABS: BUN/Creatinine Ratio 20 (6-26); Blood Urea Nitrogen 21 mg/dL (8-23); Carbon Dioxide 29 mEq/L (23-29); Chloride 105 mEq/L (98-107); Glucose 145 mg/dL (70-105); Osmolality,Calculated 296 (280-300); Potassium 4.5 mEq/L (3.5-5.1); Sodium 140 mEq/L (136-145); eGFR For Non-African Americans > 60 (> 60)
[2018-10-20] MEDS: Piperacillin/Tazobactam 3.375 GM in 0.9 % Sodium Chloride Mini Bag 100 ML IVPB SCH ×3 (05:09→20:43)
[2018-10-20] MEDS: Ringers Solution, Lactated 1,000 ML IVC SCH (05:19)
[2018-10-20] MEDS: *HR* Heparin 5,000 UNIT/ML VIAL SQ SCH ×2 (05:19→18:23)
--- NOTE | 2018-10-20 08:46 | Pulmonology Progress Note ---
Date of Encounter: 10/20/18 Time of Encounter: 08:45 Assessment and Plan (1) COPD (chronic obstructive pulmonary disease) Current Visit: Yes Status: Chronic Continue schedule bronchodilators ideally patient could be discharged with Symbicort 160/4.52 puffs twice a day and will need pulmonary follow-up He is on oral glucocorticoids which are appropriate and can be continued over a two-week taper Currently on broad-spectrum antibiotics and brought cultures negative can likely de-escalate to by mouth such as Augmentin to complete a weeklong course I suspect his leukocytosis is likely glucocorticoid-induced Qualifiers: COPD type: COPD with acute exacerbation Qualified Code(s): J44.1 - Chronic obstructive pulmonary disease with (acute) exacerbation (2) Collapse of right lung Current Visit: Yes Status: Acute Status post bronchoscopy which is notable for modest amount of mucus plugging in the right lower lobe this appears chronic with some mild bronchomalacia and in the distal airways noted. No specific treatment for this he will benefit from continued bronchodilator therapy for underlying COPD and would also benefit from a airway clearance with a flutter valve also incentive spirometry and airway clearance can also be achieved with ambulation (3) ANN (obstructive sleep apnea) Current Visit: No Status: Chronic He will need outpatient follow-up in pulmonary clinic in the 2-4 weeks of the time of discharge Pulmonary will sign off please look forward to following with this patient in clinic Do not hesitate to call me with any questions or concerns Lonny Gould [phone] Subjective Principal diagnosis: Mucous Plugging Interval history: No acute events overnight he says his breathing is better after bronchoscopy denies any complications related to procedure such as sore throat hemoptysis or increased cough/chest pain Objective PUL Vital signs: Last Vital Signs Temp 97.7 F 10/20/18 07:00 Pulse 75 10/20/18 07:00 Resp 18 10/20/18 07:32 BP 110/66 10/20/18 07:00 Pulse Ox 91 10/20/18 07:32 General appearance: no acute distress Eyes: nonicteric Auscultation: right: rhonchi Cardiovascular: regular rate and rhythm Gastrointestinal: normoactive bowel sounds Integumentary: normal Extremities: no cyanosis, pink and warm, edema Musculoskeletal: no deformities normal mental status, non-focal exam mood appropriate Results - Laboratory Findings CBC and BMP: 10/20/18 03:43 10/20/18 03:43 Abnormal lab findings: Abnormal lab results WBC 15.2 K/mcL (4.3-11.1) H D 10/20/18 03:43 13.3 K/mcL (1.6-8.9) H 10/20/18 03:43 Glucose 145 mg/dL (70-105) H 10/20/18 03:43 POC Glucose 229 mg/dL (70-99) H 10/19/18 19:23 Fluid Appearance Cloudy (Clear) A 10/19/18 Unknown - Microbiology Findings Microbiology Findings: Microbiology, Last 48 Hours 10/19/18 Unknown Respiratory Culture - Preliminary Right Lower Lobe Lung Culture is incubating. 10/19/18 10:39 Fungal Culture - Preliminary Right Lower Lobe Lung Culture is incubating. - Clinical Findings Intake & Output: Intake & Output 10/19/18 10/20/18 10/20/18 23:59 07:59 15:59 Intake Total 400 / 1060 Balance 400 / 1060 Weight 131.6 kg Consult Discharge Plan - Plan Referrals: Jose Alejandro Santos Jr, MD [Primary Care Provider] -
[2018-10-20] MEDS: *HR* LORazepam 1 MG TABLET PO SCH ×4 (08:52→22:10)
[2018-10-20] MEDS: ARIPiprazole 10 MG TABLET PO SCH (08:53)
[2018-10-20] MEDS: predniSONE 20 MG TABLET PO SCH (08:53)
--- NOTE | 2018-10-20 10:15 | Internal Med Progress Note ---
Hospitalist Progress Note - Encounter Date of Encounter: 10/20/18 Time of Encounter: 10:15 - Subjective Interval History: No acute event overnight. Patient had bronchoscopy. Shortness of breath better but is still get out of breath with exertion. Requiring oxygen supplementation. Reviewed the vitals and lab with worsening white count. Patient denies fever chills nausea vomiting headache dizziness chest pain abdominal pain diarrhea or urinary complaint - Exam Vitals: Temp Pulse Resp BP Pulse Ox 97.7 F 75 18 110/66 91 10/20/18 07:00 10/20/18 07:00 10/20/18 07:32 10/20/18 07:00 10/20/18 07:32 Exam: Constitutional: Vitals as noted. No acute distress. Oxygen by nasal cannula 3 L. Eyes : EOMI PEARLA. ENT : Grossly normal hearing. poor dentition. Moist mucus membranes. No JVD Respiratory : No accessory muscle use. Decreased breath sound bilaterally Occasional rhonchi on Rt Lower lung perez-better aeration Cardiovascular : RRR, +S1, +S2. no murmur GI/Abdominal : Soft, Non-tender, Non-distended, normal bowel sounds Musculoskeletal: no deformity noted. no edema or cyanosis. warm extremities, pulses palpable and symmetrical in UE/LE. no calf tenderness. Neurological: AO X3, CN II-XII grossly intact, grossly normal motor and sensory exam. parasthesia on soles Skin: No skin rash, lesions or ulcers noted. Pych: Good insight and judgement. Intact memory. AOx3. - Assessment and Plan (1) Collapse of right lung Current Visit: Yes Status: Acute Assessment and Plan: Near complete collapse of RLL and partial RML on CT- No clear endobronchial lesions. Has poor dentition. Continue bronchodilator, IV antibiotic bronchial hygiene. Continue oxygen supplementation. Bronchoscopy was performed on 10/19/2018-with finding of right lower lobe atelectasis with a scant mucoid secretion in the right lower lobe bronchial alveolar lavage was performed. Awaiting for bowel culture and cytology. Starting Sheet Tank Operator advised to continue steroid, DuoNeb, spirometry, antibiotic. Will de-escalate antibiotic eventually. Patient had a spike in white count but clinically appeared better therefore could be reactionary but monitor CBC. Patient will also need 6 minute walk before discharge for home oxygen evaluation-May not be possible over the long weekend as social service not available but will try to contact them (2) Anxiety and depression Current Visit: No Status: Chronic Assessment and Plan: Continue home medications. (3) Hypoxia Current Visit: Yes Status: Acute Assessment and Plan: from lung collapse management as above (4) Morbid obesity with BMI of 45.0-49.9, adult Current Visit: Yes Status: Acute Assessment and Plan: Discussed lifestyle changes and encouraged weight loss (5) Acute respiratory failure with hypoxia Current Visit: Yes Status: Acute Assessment and Plan: Improving. As above. (6) Numbness and tingling of both feet Current Visit: Yes Status: Acute Assessment and Plan: Possibly related to hyperventilation. No other focal signs of weakness. Normal A1c recently,. Head Ct unremarkable. (7) DVT prophylaxis Current Visit: Yes Status: Acute Assessment and Plan: Heparin subcutaneous - Time Spent with Patient Total time spent is greater than 50% in coordination of care (as documented) at patient's floor/unit and/or counseling patient: 25 - 35 minutes Plan of Care Discussed with: patient Internal Medicine: Result - Labs CBC & Chem 7: 10/20/18 03:43 10/20/18 03:43 Labs: Short CBC 10/20/18 Range/Units 03:43 WBC 15.2 H D (4.3-11.1) K/mcL Hgb 14.5 (12.9-16.9) g/dL Hct 44.0 (37.5-50.1) % Plt Count 167 (140-400) K/mcL Neutrophils # 13.3 H (1.6-8.9) K/mcL BMP 10/20/18 03:43 Sodium 140 Potassium 4.5 Chloride 105 Carbon Dioxide 29 BUN 21 Creatinine 1.03 Glucose 145 H Calcium 9.0 Consult Discharge Plan - Plan Referrals: Jose Alejandro Santos Jr, MD [Primary Care Provider] -
--- NOTE | 2018-10-20 19:04 | Electrocardiograph Report ---
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
[2018-10-21] MEDS: Ipratropium/Albuterol Neb 3 ML IH SCH ×6 (03:39→23:53)
[2018-10-21] MEDS: Piperacillin/Tazobactam 3.375 GM in 0.9 % Sodium Chloride Mini Bag 100 ML IVPB SCH (04:01)
[2018-10-21] MEDS: *HR* Heparin 5,000 UNIT/ML VIAL SQ SCH ×2 (05:46→18:13)
[2018-10-21 07:46] LABS: Basophils % 0.2 %; Hematocrit 41.9 % (37.5-50.1); Hemoglobin 13.6 g/dL (12.9-16.9); Immature Granulocytes % 0.6 % (0-4); Lymphocytes # 1.9 K/mcL (0.6-4.6); Lymphocytes % 18.1 %; Mean Corpuscular HGB Conc 32.5 g/dL (31.6-35.5); Mean Corpuscular Hemoglobin 31.7 pg (28.0-33.3); Mean Corpuscular Volume 97.7 fL (83.0-100.0); Mean Platelet Volume 10.8 fL (9.4-12.4); Monocytes # 0.7 K/mcL (0.0-1.3); Monocytes % 6.2 %; Platelet Count 149 K/mcL (140-400); Red Blood Count 4.29 M/mcL (4.19-5.50); Red Cell Distribution Width 13.6 % (11.5-14.5); Segmented Neutrophils % 74.9 %
[2018-10-21 08:02] LABS: BUN/Creatinine Ratio 18 (6-26); Blood Urea Nitrogen 18 mg/dL (8-23); Calcium 8.6 mg/dL (8.6-10.3); Carbon Dioxide 33 mEq/L (23-29); Chloride 103 mEq/L (98-107); Glucose 95 mg/dL (70-105); Osmolality,Calculated 292 (280-300); Sodium 140 mEq/L (136-145); eGFR For Non-African Americans > 60 (> 60)
--- NOTE | 2018-10-21 09:35 | Internal Med Progress Note ---
Hospitalist Progress Note - Encounter Date of Encounter: 10/21/18 Time of Encounter: 09:34 - Subjective Interval History: Patient desaturated in the night and oxygen had to increase 3 L by nasal cannula. Patient feeling better and shortness of breath. Review the lab with normal white count. Vitals reviewed Patient denies fever chills nausea vomiting headache dizziness chest pain abdominal pain diarrhea - Exam Vitals: Temp Pulse Resp BP Pulse Ox 96.7 F L 80 16 114/74 88 10/21/18 07:17 10/21/18 07:17 10/21/18 07:18 10/21/18 07:17 10/21/18 07:18 Exam: Constitutional: Vitals as noted. No acute distress. Oxygen by nasal cannula 3 L. Eyes : EOMI PEARLA. ENT : poor dentition. Moist mucus membranes. No JVD Respiratory : No accessory muscle use. Decreased breath sound bilaterally Occasional rhonchi on Rt Lower lung perez-better aeration Cardiovascular : RRR, +S1, +S2. no murmur GI/Abdominal : Soft, Non-tender, Non-distended, normal bowel sounds Musculoskeletal: no deformity noted. no edema or cyanosis. warm extremities, pulses palpable and symmetrical in UE/LE. no calf tenderness. Neurological: AO X3, CN II-XII grossly intact, grossly normal motor and sensory exam. parasthesia on soles Skin: No skin rash, lesions or ulcers noted. Pych: Good insight and judgement. Intact memory. AOx3. - Assessment and Plan (1) Collapse of right lung Current Visit: Yes Status: Acute Assessment and Plan: Near complete collapse of RLL and partial RML on CT- No clear endobronchial lesions. Has poor dentition. Continue bronchodilator, IV antibiotic bronchial hygiene. Continue oxygen supplementation. Bronchoscopy was performed on 10/19/2018-with finding of right lower lobe atelectasis with a scant mucoid secretion in the right lower lobe bronchial alveolar lavage was performed. Awaiting for BAL culture and cytology. Apartment Rental Clerk advised to continue steroid tapering over 2 weeks, DuoNeb, spirometry, antibiotic. Stopped Zosyn and a started Augmentin. Patient had a spike in white count but clinically appeared better therefore could be reactionary -today normal white count 6 minute walk test order for home oxygen qualification before discharge. Possible discharge home tomorrow if continued to improve clinically is (2) Acute respiratory failure with hypoxia Current Visit: Yes Status: Acute Assessment and Plan: Improving. As above. (3) Anxiety and depression Current Visit: No Status: Chronic Assessment and Plan: Continue home medications. (4) Hypoxia Current Visit: Yes Status: Acute Assessment and Plan: from lung collapse management as above (5) Morbid obesity with BMI of 45.0-49.9, adult Current Visit: Yes Status: Acute Assessment and Plan: Discussed lifestyle changes and encouraged weight loss (6) Numbness and tingling of both feet Current Visit: Yes Status: Acute Assessment and Plan: improving.Possibly related to hyperventilation. No other focal signs of weakness. Normal A1c recently,. Head Ct unremarkable. (7) DVT prophylaxis Current Visit: Yes Status: Acute Assessment and Plan: Heparin subcutaneous - Time Spent with Patient Total time spent is greater than 50% in coordination of care (as documented) at patient's floor/unit and/or counseling patient: 25 - 35 minutes Plan of Care Discussed with: patient Internal Medicine: Result - Labs CBC & Chem 7: 10/21/18 07:03 10/21/18 07:03 Labs: Short CBC 10/21/18 Range/Units 07:03 WBC 10.7 (4.3-11.1) K/mcL Hgb 13.6 (12.9-16.9) g/dL Hct 41.9 (37.5-50.1) % Plt Count 149 (140-400) K/mcL Neutrophils # 8.0 (1.6-8.9) K/mcL BMP 10/21/18 07:03 Sodium 140 Potassium 4.0 Chloride 103 Carbon Dioxide 33 H BUN 18 Creatinine 0.98 Glucose 95 Calcium 8.6 Consult Discharge Plan - Plan Referrals: Jose Alejandro Santos Jr, MD [Primary Care Provider] -
[2018-10-21] MEDS: *HR* LORazepam 1 MG TABLET PO SCH ×4 (09:43→20:06)
[2018-10-21] MEDS: ARIPiprazole 10 MG TABLET PO SCH (09:43)
[2018-10-21] MEDS: predniSONE 20 MG TABLET PO SCH (09:44)
[2018-10-22] MEDS: Ipratropium/Albuterol Neb 3 ML IH SCH ×6 (04:03→23:30)
[2018-10-22] MEDS: *HR* Heparin 5,000 UNIT/ML VIAL SQ SCH ×2 (05:51→17:50)
[2018-10-22] MEDS: predniSONE 20 MG TABLET PO SCH (08:37)
[2018-10-22] MEDS: *HR* LORazepam 1 MG TABLET PO SCH ×4 (08:37→20:57)
[2018-10-22] MEDS: ARIPiprazole 10 MG TABLET PO SCH (08:37)
--- NOTE | 2018-10-22 14:17 | Internal Med Progress Note ---
Hospitalist Progress Note - Encounter Date of Encounter: 10/22/18 Time of Encounter: 11:17 - Subjective Interval History: Patient seen and examined this morning which apparently acute overnight events. Breathing slightly improved. Denies any chest pain nausea vomiting diarrhea. Nurse reported patient significantly hypoxic overnight and with ambulation without supplemental oxygen. - Exam Vitals: Temp Pulse Resp BP Pulse Ox 97.8 F 93 16 106/73 91 10/22/18 06:58 10/22/18 06:58 10/22/18 11:12 10/22/18 06:58 10/22/18 11:12 Exam: Exam General: In no acute distress. obese, poor dentition Respiratory exam: CTAB. decreased breath sounds b/l. Improving air entry. Cardiovascular exam: RRR, +S1, +S2. no murmur, gallop, rubs. GI/Abdominal exam: Non-tender, Non-distended, normal bowel sounds, soft, no peritoneal signs. Extremities exam: no pedal edema, pulses palpable in b/l lower extremities. no calf tenderness Neurological exam: CN II-XII intact, AO X3, no focal deficits. Skin exam: No skin rash - Assessment and Plan (1) Anxiety and depression Current Visit: No Status: Chronic (2) Collapse of right lung Current Visit: Yes Status: Acute (3) Hypoxia Current Visit: Yes Status: Acute (4) Morbid obesity with BMI of 45.0-49.9, adult Current Visit: Yes Status: Acute (5) Acute respiratory failure with hypoxia Current Visit: Yes Status: Acute (6) Numbness and tingling of both feet Current Visit: Yes Status: Acute (7) DVT prophylaxis Current Visit: Yes Status: Acute - Summary of Assessment and Plan Summary of Assessment and Plan: Assessment Acute Acute hypoxic respiratory failure Rt lung collapse COPD ANN DVT prophylaxis Chronic Diverticulosis anxiety, depresssion mobid obesity tobacco abuse Plan - s/p Bronchoscopy with some amount of mucous plugging and mild bonchomalacia. - Patient started on antibiotics, bronchodilator and steroid for COPD - Patient will need ANN evaluation as outpatient - Patient not using home oxygen. Still with increased need of oxygen milly with ambulation. Will obtain o2 qualification overnight. If hypoxic tomorrow as well on qualification will need home oxygen arranged. - Time Spent with Patient Total time spent is greater than 50% in coordination of care (as documented) at patient's floor/unit and/or counseling patient: Internal Medicine: Result - Labs CBC & Chem 7: 10/21/18 07:03 10/21/18 07:03 Consult Discharge Plan - Plan Referrals: Jose Alejandro Santos Jr, MD [Primary Care Provider] -
[2018-10-23] MEDS: Ipratropium/Albuterol Neb 3 ML IH SCH ×4 (04:34→15:53)
[2018-10-23] MEDS: *HR* Heparin 5,000 UNIT/ML VIAL SQ SCH (05:14)
[2018-10-23 07:23] VITALS: BP 117/67
[2018-10-23] MEDS: *HR* LORazepam 1 MG TABLET PO SCH ×2 (08:25→12:04)
[2018-10-23] MEDS: predniSONE 20 MG TABLET PO SCH (08:25)
[2018-10-23] MEDS: ARIPiprazole 10 MG TABLET PO SCH (08:25)
--- NOTE | 2018-10-23 15:13 | Discharge Summary ---
- NOTES TO OUTPATIENT PROVIDER Notes to Outpatient Provider: Patient will follow-up with pulmonology. Patient discharged with oxygen at home, steroid taper, symbicort and antibiotic. Patient will need sleep study for obstructive sleep apnea done. Orders not resulted at time of discharge: Pending orders 10/19/18 Herpes Simplex PCR Body Fl Routine Legionella Culture [RM] Routine Resp.Virus Panel,Body Fl Routine 10/19/18 10:39 AFB Culture, Respiratory [TB] Routine AFB Smear [TB] Routine Fungal Culture [MYC] Routine Cytology [PTH] Routine 10/19/18 17:25 Bedside Spirometry Evaluation [EVAL] Routine Date of Encounter: 10/23/18 Time of Encounter: 11:07 - Discharge Diagnosis (1) Anxiety and depression Priority: Secondary Status: Chronic (2) Collapse of right lung Priority: Primary Status: Acute (3) Hypoxia Priority: Secondary Status: Acute (4) Morbid obesity with BMI of 45.0-49.9, adult Priority: Secondary Status: Acute (5) Acute respiratory failure with hypoxia Priority: Primary Status: Acute (6) Numbness and tingling of both feet Priority: Primary Status: Acute (7) DVT prophylaxis Priority: Secondary Status: Acute (8) COPD (chronic obstructive pulmonary disease) Priority: Secondary Status: Chronic Qualifiers: COPD type: COPD with acute exacerbation Qualified Code(s): J44.1 - Chronic obstructive pulmonary disease with (acute) exacerbation (9) ANN (obstructive sleep apnea) Priority: Secondary Status: Chronic (10) Obesities, morbid Priority: Secondary Status: Chronic Hospital course: Mr. Leone is a 63 year old male past medical history of anxiety, depression, morbid obesity came in with complain of difficulty breathing along with foot numbness. Patient was found to have right lung collapse recently and was found to have hypoxia. CT scan showed complete collapse of right lower lobe and partial collapse of right middle lobe. Patient was admitted for further management. Pulmonology was consulted. Patient was previous smoker and was felt to have COPD was started on steroids and empiric antibiotics. Patient's bronchoscopy showed modest amount of mucus plugging right lower lobe which appears chronic with some bronchomalacia in the distal airway. She will be discharged to finish 7 day course of antibiotic, 2 weeks prednisone taper and Symbicort. Patient will need to follow-up with pulmonology, get sleep study done as outpatient for sleep apnea. Discharge discussed with: patient, nurse, social work - Time Spent with Patient Total time spent providing and/or coordinating discharge services: Time spent: Greater than 30 minutes (40) - Discharge Medications Prescriptions: New Amoxicillin/Clavulanate [Augmentin] 875 mg PO BIDWM 1 Days #2 tablet predniSONE [PredniSONE] See Taper PO DAILY 9 Days #18 tablet Budesonide/Formoterol 160/4.5 [Symbicort 160/4.5] 2 puff IH BIDR #1 hfa.aer.ad Continued Amitriptyline HCl 100 mg PO HS Aripiprazole [Abilify] 30 mg PO DAILY LORazepam [Ativan] 1 mg PO QID PARoxetine HCl [Paroxetine HCl] 60 mg PO HS Home Medications: Amitriptyline HCl 100 mg PO HS 10/18/18 [History] Aripiprazole [Abilify] 30 mg PO DAILY 10/18/18 [History] LORazepam [Ativan] 1 mg PO QID 10/18/18 [History] PARoxetine HCl [Paroxetine HCl] 60 mg PO HS 10/18/18 [History] Amoxicillin/Clavulanate [Augmentin] 875 mg PO BIDWM 1 Days #2 tablet 10/23/18 [Rx] Budesonide/Formoterol 160/4.5 [Symbicort 160/4.5] 2 puff IH BIDR #1 hfa.aer.ad 10/23/18 [Rx] predniSONE [PredniSONE] See Taper PO DAILY 9 Days #18 tablet 10/23/18 [Rx] Allergies/Adverse Reactions: Allergy/AdvReac Type Severity Reaction Status Date / Time No Known Allergies Allergy Verified 10/18/18 13:12 Date of admission: 10/18/18 17:37 Primary care physician: Jose Alejandro Santos Jr, MD Consults: 10/18/18 15:00 Consult to Pulmonology [CONS] Stat Consulting Provider: [facility] Reason for Consult: RML, RLL lung collapse Call Completed: Yes 10/18/18 18:23 Consult to Nutrition [CONS] Routine Comment: Consulting Provider: NUTRITION Reason for Dietary Consult: MST Score Discharging clinician: Inocencio Coleman - Constitutional Vitals: Temp Pulse Resp BP Pulse Ox 97.9 F 77 16 117/67 90 10/23/18 07:18 10/23/18 07:18 10/23/18 11:20 10/23/18 07:28 10/23/18 11:20 Exam: General: In no acute distress. morbid obesity, poor dentition Respiratory exam: CTAB. occasional rhonchi on rt Cardiovascular exam: RRR, +S1, +S2. no murmur, gallop, rubs. GI/Abdominal exam: Non-tender, Non-distended, normal bowel sounds, soft, no peritoneal signs. Extremities exam: no pedal edema, pulses palpable in b/l lower extremities. no calf tenderness Neurological exam: CN II-XII intact, AO X3, no focal deficits. Skin exam: No skin rash - Patient Status Disposition: Home, Self-Care - Discharge Instructions Follow Up With: Jose Alejandro Santos Jr, MD [Primary Care Provider] -
[2018-10-24 09:03] LABS: Influenza A PCR Body Fluid NOT DETECTED; Influenza B PCR Body Fluid NOT DETECTED; RVP Body Fluid Source BAL RLL
[2018-10-24 09:15] LABS: HSV Source BAL RLL
[2018-10-25 10:22] LABS: RSV PCR Body Fluid NOT DETECTED
== END 2018-10-23 17:20 | disposition home or self-care (01) | DRG 205 ==
LOC: 2NENU 11:05 → EMEROOARM 11:05 → SUATTDRO 17:37 → 2NENU 18:00
PROVIDERS: ADMIT Internal Medicine Nephrology; ATTEND Internal Medicine

== ENCOUNTER 2019-07-04 01:11 | Inpatient (IN) ==
[2019-07-04 01:41] LABS: Eosinophils % 0.8 %; Mean Platelet Volume 11.3 fL (9.4-12.4); Monocytes % 8.3 %
[2019-07-04 01:45] LABS: Basophils # 0.1 K/mcL (0.0-0.2); Basophils % 0.8 %; Eosinophils # 0.1 K/mcL (0.0-0.6); Hematocrit 46.9 % (37.5-50.1); Hemoglobin 15.5 g/dL (12.9-16.9); Immature Granulocytes % 0.5 % (0-4); Lymphocytes % 34.2 %; Mean Corpuscular Volume 96.7 fL (83.0-100.0); Monocytes # 0.6 K/mcL (0.0-1.3); Neutrophils # 4.3 K/mcL (1.6-8.9); Platelet Count 173 K/mcL (140-400); Red Blood Count 4.85 M/mcL (4.19-5.50); Red Cell Distribution Width 13.9 % (11.5-14.5); Segmented Neutrophils % 55.4 %; White Blood Count 7.7 K/mcL (4.3-11.1)
[2019-07-04 01:53] LABS: Amphetamine Screen,Urine Negative ng/mL (Cutoff=1000); Barbiturate Screen,Urine Negative ng/mL (Cutoff=200); Benzodiazepines Screen,Urine Positive ng/mL (Cutoff=200); Cannabinoid Screen,Urine Negative ng/mL (Cutoff = 50); Cocaine Screen,Urine Negative ng/mL (Cutoff= 300); Opiate Screen,Urine Negative ng/mL (Cutoff=300); Phencyclidine Screen,Urine Negative ng/mL (Cutoff=25)
[2019-07-04 02:01] LABS: Acetaminophen < 10 mcg/mL (10-20); Alanine Aminotransferase 19 Units/L (7-52); Albumin 3.9 g/dL (3.5-5.7); Albumin/Globulin Ratio 1.3 (1.1-2.2); Alkaline Phosphatase 67 Units/L (34-104); Aspartate Amino Transferase 26 Units/L (13-39); BUN/Creatinine Ratio 11 (6-26); Bilirubin,Indirect 0.5 mg/dL (0.0-1.0); Bilirubin,Total 0.5 mg/dL (0.3-1.0); Blood Urea Nitrogen 11 mg/dL (8-23); Calcium 8.9 mg/dL (8.6-10.3); Carbon Dioxide 27 mEq/L (23-29); Chloride 106 mEq/L (98-107); Chol/HDL Ratio 4.9 (0-4.9); Cholesterol 151 mg/dL (< 200); Globulin 2.9 g/dL (2.4-3.5); Glucose 100 mg/dL (70-105); HDL Cholesterol 31 mg/dL (40-59); LDL Cholesterol,Calculated 81 mg/dL (0-99); Osmolality,Calculated 287 (280-300); Potassium 3.7 mEq/L (3.5-5.1); Salicylate < 2.5 mg/dL (15.0-30.0); Sodium 139 mEq/L (136-145); Total Protein 6.8 g/dL (6.4-8.9); Triglycerides 193 mg/dL (< 150); eGFR For African Americans > 60 (> 60); eGFR For Non-African Americans > 60 (> 60)
[2019-07-04 02:17] LABS: Lymphocytes # 2.6 K/mcL (0.6-4.6)
[2019-07-04 02:19] LABS: Platelet Clumps Few (Not Present); Platelet Estimate Normal (Normal)
[2019-07-04 02:23] LABS: Ethanol < 10 mg/dL (Less than 10)
[2019-07-04] MEDS ORDERED: *HR* LORazepam 1 MG TABLET PO PRN (04:27)
[2019-07-04] MEDS ORDERED: hydrOXYzine pamoate 25 MG CAPSULE PO PRN (04:27)
[2019-07-04] MEDS ORDERED: *HR* LORazepam 2 MG/ML VIAL IM PRN (04:27)
[2019-07-04] MEDS ORDERED: Acetaminophen 325 MG TABLET PO PRN (04:27)
[2019-07-04] MEDS ORDERED: Haloperidol Lactate 5 MG/ML VIAL IM PRN (04:27)
[2019-07-04] MEDS ORDERED: MOM Conc 10 ML UD.LIQ PO PRN (04:27)
[2019-07-04] MEDS ORDERED: traZODone 50 MG TABLET PO PRN (04:27)
[2019-07-04] MEDS ORDERED: Mag Hydrox/Al Hydrox/Simeth 30 ML UDC PO PRN (04:27)
[2019-07-04] MEDS: ARIPiprazole 10 MG TABLET PO SCH (12:45)
[2019-07-04] MEDS: BuPROPion XL (24 HR) 150 MG TABLET PO SCH (12:45)
[2019-07-04] MEDS: diazePAM 10 MG TABLET PO SCH ×2 (15:04→21:29)
[2019-07-04] MEDS ORDERED: PARoxetine 30 MG TABLET PO SCH (21:00)
[2019-07-05] MEDS: ARIPiprazole 10 MG TABLET PO SCH (09:44)
[2019-07-05] MEDS: BuPROPion XL (24 HR) 150 MG TABLET PO SCH (09:45)
[2019-07-05] MEDS: diazePAM 10 MG TABLET PO SCH (09:45)
[2019-07-05 10:04] VITALS: BP 113/74
== END 2019-07-05 13:17 | disposition home or self-care (01) | DRG 885 ==
LOC: EMEROOARM 01:11 → 1ANU 04:11
PROVIDERS: ADMIT Psychiatry & Neurology Psychiatry; ATTEND Psychiatry & Neurology Psychiatry

== ENCOUNTER 2019-10-06 01:50 | Inpatient (IN) ==
[2019-10-06 02:35] LABS: Basophils % 0.5 %; Eosinophils # 0.1 K/mcL (0.0-0.6); Eosinophils % 0.8 %; Hematocrit 47.1 % (37.5-50.1); Hemoglobin 15.6 g/dL (12.9-16.9); Immature Granulocytes % 0.6 % (0-4); Lymphocytes # 2.8 K/mcL (0.6-4.6); Lymphocytes % 32.3 %; Mean Corpuscular HGB Conc 33.1 g/dL (31.6-35.5); Mean Corpuscular Hemoglobin 31.6 pg (28.0-33.3); Mean Corpuscular Volume 95.3 fL (83.0-100.0); Mean Platelet Volume 10.4 fL (9.4-12.4); Monocytes # 0.6 K/mcL (0.0-1.3); Monocytes % 7.5 %; Platelet Count 184 K/mcL (140-400); Red Blood Count 4.94 M/mcL (4.19-5.50); Red Cell Distribution Width 13.5 % (11.5-14.5); Segmented Neutrophils % 58.3 %; White Blood Count 8.6 K/mcL (4.3-11.1)
[2019-10-06 02:55] LABS: Acetaminophen < 10 mcg/mL (10-20); BUN/Creatinine Ratio 15 (6-26); Blood Urea Nitrogen 14 mg/dL (8-23); Calcium 8.8 mg/dL (8.6-10.3); Carbon Dioxide 27 mEq/L (23-29); Chloride 103 mEq/L (98-107); Ethanol < 10 mg/dL (Less than 10); Glucose 97 mg/dL (70-105); Osmolality,Calculated 286 (280-300); Potassium 3.9 mEq/L (3.5-5.1); Salicylate < 2.5 mg/dL (15.0-30.0); Sodium 138 mEq/L (136-145); eGFR For African Americans > 60 (> 60); eGFR For Non-African Americans > 60 (> 60)
[2019-10-06 02:56] LABS: Bilirubin,Urine Negative (Negative); Blood,Urine Negative (Negative); Clarity,Urine Clear (Clear); Color,Urine Yellow (Yellow); Glucose,Urine (UA) Normal (Normal); Ketones,Urine Negative (Negative); Leukocyte Esterase,Urine Negative (Negative); Nitrite,Urine Negative (Negative); PH,Urine 5.5 pH Units (5.0-8.0); Protein,Urine Negative (Neg-Trace); Specific Gravity,Urine 1.026 (1.010-1.025); Urobilinogen,Urine Normal (Normal)
[2019-10-06 03:09] LABS: Amphetamine Screen,Urine Negative ng/mL (Cutoff=1000); Barbiturate Screen,Urine Negative ng/mL (Cutoff=200); Benzodiazepines Screen,Urine Positive ng/mL (Cutoff=200); Cannabinoid Screen,Urine Negative ng/mL (Cutoff = 50); Cocaine Screen,Urine Negative ng/mL (Cutoff= 300); Opiate Screen,Urine Negative ng/mL (Cutoff=300); Phencyclidine Screen,Urine Negative ng/mL (Cutoff=25)
[2019-10-06] MEDS ORDERED: Haloperidol Lactate 5 MG/ML VIAL IM PRN (04:16)
[2019-10-06] MEDS ORDERED: *HR* LORazepam 2 MG/ML VIAL IM PRN (04:16)
[2019-10-06] MEDS ORDERED: haloperidoL 5 MG TABLET PO PRN (04:16)
[2019-10-06] MEDS ORDERED: traZODone 50 MG TABLET PO PRN (04:16)
[2019-10-06] MEDS ORDERED: hydrOXYzine pamoate 25 MG CAPSULE PO PRN (04:16)
[2019-10-06] MEDS ORDERED: Acetaminophen 325 MG TABLET PO PRN (04:16)
[2019-10-06] MEDS ORDERED: Ibuprofen 400 MG TABLET PO PRN (04:16)
[2019-10-06] MEDS ORDERED: *HR* LORazepam 1 MG TABLET PO PRN (04:16)
[2019-10-06] MEDS ORDERED: BuPROPion XL (24 HR) 150 MG TABLET PO SCH (11:30)
[2019-10-06 14:19] LABS: ABG Base Excess 4 mEq/L (-2 to 3); ABG HCO3 31 mEq/L (21-27); ABG Oxygen Saturation 93 % (95-98); ABG PCO2 53 mmHg (35-45); ABG PH 7.37 pH Units (7.32-7.45); ABG PO2 72 mmHg (85-104); ABG TCO2 32 mEq/L (20-26)
[2019-10-06] MEDS: diazePAM 10 MG TABLET PO SCH ×2 (16:47→20:20)
[2019-10-06] MEDS: Budesonide Neb 0.5 MG/2 ML IH SCH ×2 (20:11→21:19)
[2019-10-06] MEDS: Ipratropium/Albuterol Neb 3 ML IH PRN (21:19)
[2019-10-07] MEDS: Ipratropium/Albuterol Neb 3 ML IH PRN (03:04)
[2019-10-07 03:08] VITALS: BP 126/82
[2019-10-07] MEDS ORDERED: ARIPiprazole 10 MG TABLET PO SCH (09:00)
== END 2019-10-07 05:00 | disposition home or self-care (01) | DRG 885 ==
LOC: 1ANU 01:50 → EMEROOARM 01:50 → 1ANU 10:41
PROVIDERS: ADMIT Psychiatry & Neurology Psychiatry; ATTEND Psychiatry & Neurology Psychiatry

== ENCOUNTER 2019-10-07 04:17 | Observation (INO) ==
[2019-10-07] MEDS ORDERED: Naloxone 0.4 MG/ML INJ IVP PRN (04:25)
[2019-10-07] MEDS ORDERED: Mag Hydrox/Al Hydrox/Simeth 30 ML UDC PO PRN (04:25)
[2019-10-07] MEDS ORDERED: MOM Conc 10 ML UD.LIQ PO PRN (04:25)
[2019-10-07] MEDS ORDERED: Acetaminophen 325 MG TABLET PO PRN (04:25)
[2019-10-07] MEDS ORDERED: diazePAM 10 MG TABLET PO PRN (04:28)
[2019-10-07] MEDS ORDERED: Ipratropium/Albuterol Neb 3 ML IH PRN (04:30)
[2019-10-07] MEDS ORDERED: Furosemide 20 MG/2 ML VIAL IVP ONE (04:44)
[2019-10-07 06:14] LABS: Hematocrit 44.3 % (37.5-50.1); Hemoglobin 14.6 g/dL (12.9-16.9); Mean Corpuscular Hemoglobin 31.9 pg (28.0-33.3); Mean Corpuscular Volume 96.9 fL (83.0-100.0); Mean Platelet Volume 10.2 fL (9.4-12.4); Platelet Count 147 K/mcL (140-400); Red Blood Count 4.57 M/mcL (4.19-5.50); Red Cell Distribution Width 13.6 % (11.5-14.5); White Blood Count 7.7 K/mcL (4.3-11.1)
[2019-10-07 06:35] LABS: Alanine Aminotransferase 11 Units/L (7-52); Albumin 3.7 g/dL (3.5-5.7); Albumin/Globulin Ratio 1.5 (1.1-2.2); Alkaline Phosphatase 67 Units/L (34-104); Aspartate Amino Transferase 16 Units/L (13-39); BUN/Creatinine Ratio 14 (6-26); Bilirubin,Total 0.5 mg/dL (0.3-1.0); Blood Urea Nitrogen 13 mg/dL (8-23); Calcium 8.7 mg/dL (8.6-10.3); Carbon Dioxide 29 mEq/L (23-29); Chloride 104 mEq/L (98-107); Globulin 2.5 g/dL (2.4-3.5); Glucose 95 mg/dL (70-105); Magnesium 2.1 mg/dL (1.6-2.6); Osmolality,Calculated 288 (280-300); Phosphorous 3.4 mg/dL (2.7-4.5); Potassium 4.2 mEq/L (3.5-5.1); Sodium 139 mEq/L (136-145); Total Protein 6.2 g/dL (6.4-8.9); eGFR For African Americans > 60 (> 60); eGFR For Non-African Americans > 60 (> 60)
[2019-10-07] MEDS: BuPROPion XL (24 HR) 150 MG TABLET PO SCH (07:04)
[2019-10-07] MEDS: ARIPiprazole 10 MG TABLET PO SCH (07:04)
[2019-10-07] MEDS: *HR* Enoxaparin 40 MG/0.4 ML SYRINGE SQ SCH (11:39)
[2019-10-07 15:24] LABS: ABG Base Excess 5 mEq/L (-2 to 3); ABG HCO3 32 mEq/L (21-27); ABG Oxygen Saturation 94 % (95-98); ABG PCO2 53 mmHg (35-45); ABG PH 7.39 pH Units (7.32-7.45); ABG PO2 74 mmHg (85-104); ABG TCO2 34 mEq/L (20-26)
[2019-10-07] MEDS: ARIPiprazole 5 MG TABLET PO SCH (17:35)
[2019-10-07] MEDS ORDERED: Isovue-370 500 ML BOTTLE IVP ONE (18:29)
[2019-10-08] MEDS: *HR* Enoxaparin 40 MG/0.4 ML SYRINGE SQ SCH (05:19)
[2019-10-08] MEDS: ARIPiprazole 10 MG TABLET PO SCH (07:20)
[2019-10-08] MEDS: BuPROPion XL (24 HR) 150 MG TABLET PO SCH (07:20)
[2019-10-08 07:29] LABS: Hematocrit 45.8 % (37.5-50.1); Mean Corpuscular HGB Conc 32.8 g/dL (31.6-35.5); Mean Corpuscular Hemoglobin 32.1 pg (28.0-33.3); Mean Corpuscular Volume 97.9 fL (83.0-100.0); Platelet Count 157 K/mcL (140-400); Red Blood Count 4.68 M/mcL (4.19-5.50); Red Cell Distribution Width 13.4 % (11.5-14.5); White Blood Count 6.4 K/mcL (4.3-11.1)
[2019-10-08 07:46] LABS: BUN/Creatinine Ratio 12 (6-26); Blood Urea Nitrogen 12 mg/dL (8-23); Calcium 8.3 mg/dL (8.6-10.3); Carbon Dioxide 32 mEq/L (23-29); Chloride 103 mEq/L (98-107); Glucose 97 mg/dL (70-105); Osmolality,Calculated 286 (280-300); Potassium 4.1 mEq/L (3.5-5.1); Sodium 138 mEq/L (136-145); eGFR For African Americans > 60 (> 60); eGFR For Non-African Americans > 60 (> 60)
[2019-10-08] MEDS: ARIPiprazole 5 MG TABLET PO SCH (17:15)
[2019-10-09 00:47] LABS: Hematocrit 45.5 % (37.5-50.1); Hemoglobin 15.4 g/dL (12.9-16.9); Mean Corpuscular HGB Conc 33.8 g/dL (31.6-35.5); Mean Corpuscular Hemoglobin 32.6 pg (28.0-33.3); Mean Corpuscular Volume 96.2 fL (83.0-100.0); Platelet Count 167 K/mcL (140-400); Red Blood Count 4.73 M/mcL (4.19-5.50); Red Cell Distribution Width 13.4 % (11.5-14.5); White Blood Count 7.5 K/mcL (4.3-11.1)
[2019-10-09 01:07] LABS: BUN/Creatinine Ratio 13 (6-26); Blood Urea Nitrogen 16 mg/dL (8-23); Calcium 8.6 mg/dL (8.6-10.3); Carbon Dioxide 30 mEq/L (23-29); Chloride 103 mEq/L (98-107); Glucose 103 mg/dL (70-105); Osmolality,Calculated 289 (280-300); Potassium 3.9 mEq/L (3.5-5.1); Sodium 139 mEq/L (136-145); eGFR For African Americans > 60 (> 60); eGFR For Non-African Americans 58 (> 60)
[2019-10-09] MEDS: *HR* Enoxaparin 40 MG/0.4 ML SYRINGE SQ SCH (06:29)
[2019-10-09] MEDS: BuPROPion XL (24 HR) 150 MG TABLET PO SCH (08:35)
[2019-10-09] MEDS: ARIPiprazole 10 MG TABLET PO SCH (08:35)
[2019-10-09] MEDS: ARIPiprazole 5 MG TABLET PO SCH (16:27)
[2019-10-10 04:45] LABS: Hematocrit 46.5 % (37.5-50.1); Hemoglobin 15.1 g/dL (12.9-16.9); Mean Corpuscular HGB Conc 32.5 g/dL (31.6-35.5); Mean Corpuscular Hemoglobin 31.6 pg (28.0-33.3); Mean Corpuscular Volume 97.3 fL (83.0-100.0); Mean Platelet Volume 10.2 fL (9.4-12.4); Platelet Count 162 K/mcL (140-400); Red Blood Count 4.78 M/mcL (4.19-5.50); Red Cell Distribution Width 13.3 % (11.5-14.5); White Blood Count 7.5 K/mcL (4.3-11.1)
[2019-10-10 05:07] LABS: BUN/Creatinine Ratio 18 (6-26); Blood Urea Nitrogen 17 mg/dL (8-23); Calcium 8.9 mg/dL (8.6-10.3); Carbon Dioxide 32 mEq/L (23-29); Chloride 104 mEq/L (98-107); Glucose 91 mg/dL (70-105); Osmolality,Calculated 289 (280-300); Sodium 139 mEq/L (136-145); eGFR For African Americans > 60 (> 60); eGFR For Non-African Americans > 60 (> 60)
[2019-10-10] MEDS: *HR* Enoxaparin 40 MG/0.4 ML SYRINGE SQ SCH (05:55)
[2019-10-10 07:15] VITALS: BP 111/73
[2019-10-10] MEDS: BuPROPion XL (24 HR) 150 MG TABLET PO SCH (09:40)
[2019-10-10] MEDS: ARIPiprazole 10 MG TABLET PO SCH (09:40)
== END 2019-10-10 14:09 | disposition home or self-care (01) ==
LOC: 3ANU → SUATTDRO 05:24
PROVIDERS: ADMIT Internal Medicine; ATTEND Family Medicine

== ENCOUNTER 2020-03-15 22:46 | Observation (INO) ==
[2020-03-15 23:15] LABS: Basophils # 0.1 K/mcL (0.0-0.2); Basophils % 0.7 %; Eosinophils # 0.1 K/mcL (0.0-0.6); Eosinophils % 1.5 %; Hematocrit 41.2 % (37.5-50.1); Hemoglobin 13.5 g/dL (12.9-16.9); Immature Granulocytes % 0.9 % (0-4); Lymphocytes # 2.3 K/mcL (0.6-4.6); Lymphocytes % 30.5 %; Mean Corpuscular HGB Conc 32.8 g/dL (31.6-35.5); Mean Corpuscular Hemoglobin 31.3 pg (28.0-33.3); Mean Corpuscular Volume 95.6 fL (83.0-100.0); Mean Platelet Volume 9.7 fL (9.4-12.4); Monocytes # 0.6 K/mcL (0.0-1.3); Neutrophils # 4.4 K/mcL (1.6-8.9); Platelet Count 198 K/mcL (140-400); Red Blood Count 4.31 M/mcL (4.19-5.50); Red Cell Distribution Width 13.8 % (11.5-14.5); Segmented Neutrophils % 58.4 %; White Blood Count 7.5 K/mcL (4.3-11.1)
[2020-03-15 23:25] LABS: VBG HCO3 30 mEq/L (21-27); VBG PCO2 50 mmHg (41-51); VBG PH 7.39 pH Units (7.32-7.42); VBG PO2 171 mmHg (25-50)
[2020-03-15 23:31] LABS: Estimated Average Glucose 120 mg/dl
[2020-03-15 23:39] LABS: Bilirubin,Urine Negative (Negative); Blood,Urine Negative (Negative); Clarity,Urine Clear (Clear); Color,Urine Yellow (Yellow); Glucose,Urine (UA) Normal (Normal); Ketones,Urine Negative (Negative); Leukocyte Esterase,Urine Negative (Negative); Nitrite,Urine Negative (Negative); Protein,Urine Negative (Neg-Trace); Specific Gravity,Urine 1.024 (1.010-1.025); Urobilinogen,Urine Normal (Normal)
[2020-03-15 23:41] LABS: Acetaminophen < 10 mcg/mL (10-20); Alanine Aminotransferase 8 Units/L (7-52); Albumin 3.4 g/dL (3.5-5.7); Albumin/Globulin Ratio 1.1 (1.1-2.2); Alkaline Phosphatase 63 Units/L (34-104); Aspartate Amino Transferase 13 Units/L (13-39); BUN/Creatinine Ratio 10 (6-26); Bilirubin,Indirect 0.3 mg/dL (0.0-1.0); Bilirubin,Total 0.3 mg/dL (0.3-1.0); Blood Urea Nitrogen 9 mg/dL (8-23); Calcium 8.7 mg/dL (8.6-10.3); Carbon Dioxide 28 mEq/L (23-29); Chloride 104 mEq/L (98-107); Chol/HDL Ratio 4.2 (0-4.9); Cholesterol 134 mg/dL (< 200); Ethanol < 10 mg/dL (Less than 10); Globulin 3.1 g/dL (2.4-3.5); Glucose 118 mg/dL (70-105); HDL Cholesterol 32 mg/dL (40-59); LDL Cholesterol,Calculated 80 mg/dL (< 100); Osmolality,Calculated 288 (280-300); Potassium 3.6 mEq/L (3.5-5.1); Salicylate < 2.5 mg/dL (15.0-30.0); Sodium 139 mEq/L (136-145); Total Protein 6.5 g/dL (6.4-8.9); Triglycerides 109 mg/dL (< 150); Troponin I < 0.03 ng/mL (< 0.04); eGFR For African Americans > 60 (> 60); eGFR For Non-African Americans > 60 (> 60)
[2020-03-15 23:54] LABS: Thyroid Stimulating Hormone 5.644 mcIU/mL (0.340-5.600)
[2020-03-16] LABS: Amphetamine Screen,Urine Negative ng/mL (Cutoff=1000); Barbiturate Screen,Urine Negative ng/mL (Cutoff=200); Benzodiazepines Screen,Urine Positive ng/mL (Cutoff=200); Cannabinoid Screen,Urine Negative ng/mL (Cutoff = 50); Cocaine Screen,Urine Negative ng/mL (Cutoff= 300); Opiate Screen,Urine Negative ng/mL (Cutoff=300); Phencyclidine Screen,Urine Negative ng/mL (Cutoff=25)
[2020-03-16] MEDS ORDERED: Naloxone 0.4 MG/ML INJ IVP PRN (04:58)
[2020-03-16] MEDS ORDERED: Ondansetron 4 MG/2 ML VIAL IVP PRN (04:58)
[2020-03-16] MEDS ORDERED: Furosemide 40 MG/4 ML VIAL IVP ONE (05:01)
[2020-03-16] MEDS ORDERED: Furosemide 20 MG TABLET PO PRN (05:14)
[2020-03-16 06:10] LABS: Basophils # 0.1 K/mcL (0.0-0.2); Basophils % 0.7 %; Eosinophils # 0.1 K/mcL (0.0-0.6); Eosinophils % 1.8 %; Hematocrit 40.6 % (37.5-50.1); Hemoglobin 12.6 g/dL (12.9-16.9); Lymphocytes # 2.4 K/mcL (0.6-4.6); Lymphocytes % 35.9 %; Mean Corpuscular Hemoglobin 30.2 pg (28.0-33.3); Mean Corpuscular Volume 97.4 fL (83.0-100.0); Mean Platelet Volume 9.9 fL (9.4-12.4); Monocytes # 0.6 K/mcL (0.0-1.3); Neutrophils # 3.5 K/mcL (1.6-8.9); Platelet Count 190 K/mcL (140-400); Red Blood Count 4.17 M/mcL (4.19-5.50); Segmented Neutrophils % 51.6 %; White Blood Count 6.8 K/mcL (4.3-11.1)
[2020-03-16] MEDS: *HR* Enoxaparin 40 MG/0.4 ML SYRINGE SQ SCH (06:24)
[2020-03-16 06:30] LABS: BUN/Creatinine Ratio 9 (6-26); Blood Urea Nitrogen 8 mg/dL (8-23); Calcium 8.5 mg/dL (8.6-10.3); Carbon Dioxide 31 mEq/L (23-29); Chloride 105 mEq/L (98-107); Glucose 96 mg/dL (70-105); Magnesium 1.9 mg/dL (1.6-2.6); Osmolality,Calculated 288 (280-300); Potassium 3.9 mEq/L (3.5-5.1); Sodium 140 mEq/L (136-145); eGFR For African Americans > 60 (> 60); eGFR For Non-African Americans > 60 (> 60)
[2020-03-16] MEDS: diazePAM 5 MG TABLET PO SCH ×2 (09:40→20:32)
[2020-03-16] MEDS: BuPROPion SR (12 HR) 100 MG TABLET PO SCH (09:41)
[2020-03-16] MEDS: ARIPiprazole 10 MG TABLET PO SCH (09:41)
[2020-03-17] MEDS: *HR* Enoxaparin 40 MG/0.4 ML SYRINGE SQ SCH (05:44)
[2020-03-17] MEDS: diazePAM 5 MG TABLET PO SCH (08:51)
[2020-03-17] MEDS: BuPROPion SR (12 HR) 100 MG TABLET PO SCH (08:51)
[2020-03-17] MEDS: ARIPiprazole 10 MG TABLET PO SCH (08:51)
[2020-03-17 11:07] VITALS: BP 108/64
== END 2020-03-17 14:30 ==
LOC: 3BNU 22:46 → EMEROOARM 22:46 → SUATTDRO 03-16 03:33 → 3BNU 03-16 04:00
PROVIDERS: ADMIT Internal Medicine; ATTEND Internal Medicine

== ENCOUNTER 2020-07-14 13:16 | Observation (INO) ==
[2020-07-14] MEDS ORDERED: 0.9 % Sodium Chloride 1,000 ML IVC ONE (13:59)
[2020-07-14] MEDS ORDERED: Isovue-370 500 ML BOTTLE IVP ONE (13:59)
[2020-07-14 14:20] LABS: Basophils % 0.5 %; Eosinophils % 0.4 %; Hematocrit 46.5 % (37.5-50.1); Hemoglobin 15.5 g/dL (12.9-16.9); Immature Granulocytes % 0.4 % (0-4); Lymphocytes # 1.9 K/mcL (0.6-4.6); Lymphocytes % 23.5 %; Mean Corpuscular HGB Conc 33.3 g/dL (31.6-35.5); Mean Corpuscular Hemoglobin 29.9 pg (28.0-33.3); Mean Corpuscular Volume 89.8 fL (83.0-100.0); Mean Platelet Volume 11.6 fL (9.4-12.4); Monocytes # 0.8 K/mcL (0.0-1.3); Monocytes % 9.8 %; Neutrophils # 5.3 K/mcL (1.6-8.9); Platelet Count 189 K/mcL (140-400); Red Blood Count 5.18 M/mcL (4.19-5.50); Red Cell Distribution Width 14.6 % (11.5-14.5); Segmented Neutrophils % 65.4 %; White Blood Count 8.1 K/mcL (4.3-11.1)
[2020-07-14 14:32] LABS: Alanine Aminotransferase 20 Units/L (7-52); Albumin 3.8 g/dL (3.5-5.7); Albumin/Globulin Ratio 1.2 (1.1-2.2); Alkaline Phosphatase 52 Units/L (34-104); Aspartate Amino Transferase 28 Units/L (13-39); BUN/Creatinine Ratio 10 (6-26); Bilirubin,Direct 0.2 mg/dL (0.0-0.2); Bilirubin,Indirect 0.5 mg/dL (0.0-1.0); Bilirubin,Total 0.7 mg/dL (0.3-1.0); Blood Urea Nitrogen 10 mg/dL (8-23); Calcium 9.5 mg/dL (8.6-10.3); Carbon Dioxide 26 mEq/L (23-29); Chloride 100 mEq/L (98-107); Globulin 3.3 g/dL (2.4-3.5); Glucose 108 mg/dL (70-105); Lipase 7 Units/L (11-82); Magnesium 1.7 mg/dL (1.6-2.6); Osmolality,Calculated 286 (280-300); Potassium 3.4 mEq/L (3.5-5.1); Sodium 138 mEq/L (136-145); Total Protein 7.1 g/dL (6.4-8.9); Troponin I 0.03 ng/mL (< 0.04); eGFR For African Americans > 60 (> 60); eGFR For Non-African Americans > 60 (> 60)
[2020-07-14] MEDS ORDERED: Acetaminophen 325 MG TABLET PO PRN (16:28)
[2020-07-14] MEDS ORDERED: Naloxone 0.4 MG/ML INJ IVP PRN (16:28)
[2020-07-14 17:12] LABS: Thyroid Stimulating Hormone 0.093 mcIU/mL (0.340-5.600)
[2020-07-14] MEDS ORDERED: Ondansetron 4 MG/2 ML VIAL IVP PRN (17:17)
[2020-07-14] MEDS: *HR* Heparin 5,000 UNIT/ML VIAL SQ SCH (18:04)
[2020-07-14] MEDS: 0.9 % Sodium Chloride 1,000 ML IVC SCH (18:05)
[2020-07-14 18:26] LABS: Bilirubin,Urine Negative (Negative); Blood,Urine Negative (Negative); Calcium Oxalate Crystals,Urine Present; Clarity,Urine Clear (Clear); Color,Urine Yellow (Yellow); Glucose,Urine (UA) Normal (Normal); Ketones,Urine 10 mg/dL (Negative); Leukocyte Esterase,Urine Negative (Negative); Mucus,Urine Many per lpf (None-Few); Nitrite,Urine Negative (Negative); Protein,Urine 30 mg/dL (Neg-Trace); Specific Gravity,Urine > 1.030 (1.010-1.025); Urobilinogen,Urine Normal (Normal)
[2020-07-14] MEDS: diazePAM 5 MG TABLET PO SCH (21:12)
[2020-07-14] MEDS: Nystatin Cream 15 GM TUBE TP SCH (21:12)
[2020-07-15] MEDS: MetroNIDAZOLE 500 MG/100 ML 500 MG/100 ML BAG IVPB SCH ×4 (00:25→23:29)
[2020-07-15] MEDS: 0.9 % Sodium Chloride 1,000 ML IVC SCH (00:25)
[2020-07-15 05:40] LABS: Basophils % 0.5 %; Eosinophils % 0.3 %; Hematocrit 42.2 % (37.5-50.1); Hemoglobin 14.1 g/dL (12.9-16.9); Immature Granulocytes % 0.3 % (0-4); Lymphocytes # 1.5 K/mcL (0.6-4.6); Lymphocytes % 23.3 %; Mean Corpuscular HGB Conc 33.4 g/dL (31.6-35.5); Mean Corpuscular Hemoglobin 30.6 pg (28.0-33.3); Mean Corpuscular Volume 91.5 fL (83.0-100.0); Mean Platelet Volume 11.9 fL (9.4-12.4); Monocytes # 0.6 K/mcL (0.0-1.3); Monocytes % 9.4 %; Neutrophils # 4.2 K/mcL (1.6-8.9); Platelet Count 165 K/mcL (140-400); Red Blood Count 4.61 M/mcL (4.19-5.50); Red Cell Distribution Width 14.9 % (11.5-14.5); Segmented Neutrophils % 66.2 %; White Blood Count 6.3 K/mcL (4.3-11.1)
[2020-07-15 05:59] LABS: BUN/Creatinine Ratio 10 (6-26); Blood Urea Nitrogen 8 mg/dL (8-23); Calcium 8.6 mg/dL (8.6-10.3); Carbon Dioxide 27 mEq/L (23-29); Chloride 102 mEq/L (98-107); Glucose 100 mg/dL (70-105); Osmolality,Calculated 282 (280-300); Potassium 3.6 mEq/L (3.5-5.1); Sodium 137 mEq/L (136-145); eGFR For African Americans > 60 (> 60); eGFR For Non-African Americans > 60 (> 60)
[2020-07-15] MEDS: *HR* Heparin 5,000 UNIT/ML VIAL SQ SCH ×2 (07:07→18:27)
[2020-07-15] MEDS: diazePAM 5 MG TABLET PO SCH ×2 (08:48→20:01)
[2020-07-15] MEDS: Nystatin Cream 15 GM TUBE TP SCH ×2 (08:58→20:00)
[2020-07-15] MEDS: polyethylene glycoL 3350 17 GM POWD.PACK PO SCH (10:40)
[2020-07-15] MEDS: RisperiDAL 3 MG TABLET PO SCH (20:01)
[2020-07-15] MEDS ORDERED: traZODone 50 MG TABLET PO SCH (21:00)
[2020-07-15] MEDS ORDERED: Mirtazapine 15 MG TABLET PO SCH (21:00)
[2020-07-16 02:13] LABS: Hematocrit 41.8 % (37.5-50.1); Hemoglobin 13.8 g/dL (12.9-16.9); Mean Corpuscular Hemoglobin 29.8 pg (28.0-33.3); Mean Corpuscular Volume 90.3 fL (83.0-100.0); Mean Platelet Volume 11.5 fL (9.4-12.4); Platelet Count 150 K/mcL (140-400); Red Blood Count 4.63 M/mcL (4.19-5.50); Red Cell Distribution Width 14.8 % (11.5-14.5); White Blood Count 5.1 K/mcL (4.3-11.1)
[2020-07-16 02:35] LABS: Alanine Aminotransferase 13 Units/L (7-52); Albumin 3.3 g/dL (3.5-5.7); Albumin/Globulin Ratio 1.1 (1.1-2.2); Alkaline Phosphatase 43 Units/L (34-104); Aspartate Amino Transferase 18 Units/L (13-39); BUN/Creatinine Ratio 8 (6-26); Bilirubin,Total 0.5 mg/dL (0.3-1.0); Blood Urea Nitrogen 6 mg/dL (8-23); Calcium 8.8 mg/dL (8.6-10.3); Carbon Dioxide 28 mEq/L (23-29); Chloride 106 mEq/L (98-107); Glucose 110 mg/dL (70-105); Osmolality,Calculated 290 (280-300); Potassium 3.5 mEq/L (3.5-5.1); Sodium 141 mEq/L (136-145); Total Protein 6.3 g/dL (6.4-8.9); eGFR For African Americans > 60 (> 60); eGFR For Non-African Americans > 60 (> 60)
[2020-07-16] MEDS: *HR* Heparin 5,000 UNIT/ML VIAL SQ SCH ×2 (05:17→17:28)
[2020-07-16] MEDS: MetroNIDAZOLE 500 MG/100 ML 500 MG/100 ML BAG IVPB SCH ×2 (08:20→15:21)
[2020-07-16] MEDS: diazePAM 5 MG TABLET PO SCH (08:21)
[2020-07-16] MEDS: polyethylene glycoL 3350 17 GM POWD.PACK PO SCH (08:21)
[2020-07-16] MEDS: RisperiDAL 3 MG TABLET PO SCH (08:21)
[2020-07-16] MEDS: Nystatin Cream 15 GM TUBE TP SCH (08:24)
[2020-07-16 08:50] LABS: Triiodothyronine (T3) Free 2.81 pg/mL (2.50-3.90)
[2020-07-16 08:55] LABS: Triiodothyronine (T3) Total 0.97 ng/mL (0.87-1.78)
[2020-07-16 15:22] VITALS: BP 109/73
[2020-07-16 17:37] LABS: Adenovirus Not Detected (Not Detect); Bordetella Pertussis Not Detected (Not Detect); Chlamydophila pneumoniae Not Detected (Not Detect); Coronavirus 229E Not Detected (Not Detect); Coronavirus HKU1 Not Detected (Not Detect); Coronavirus NL63 Not Detected (Not Detect); Coronavirus OC43 Not Detected (Not Detect); Human Metapneumovirus Not Detected (Not Detect); Human Rhinovirus/Enterovirus Not Detected (Not Detect); Influenza A Subtype 2009 H1 Not Detected (Not Detect); Influenza B Not Detected (Not Detect); Mycoplasma pneumoniae Not Detected (Not Detect); Parainfluenza Virus 1 Not Detected (Not Detect); Parainfluenza Virus 2 Not Detected (Not Detect); Parainfluenza Virus 3 Not Detected (Not Detect); Parainfluenza Virus 4 Not Detected (Not Detect); Respiratory Syncytial Virus Not Detected (Not Detect); SARS-CoV-2 Not Detected (Not Detect)
== END 2020-07-16 18:36 ==
LOC: EMEROOARM 13:16 → 3BNU 13:16 → SUATTDRO 15:54 → 3BNU 16:55
PROVIDERS: ADMIT Internal Medicine; ATTEND Registered Nurse